=== PATIENT | male | born 1960 | race African-American/Black ===

== ENCOUNTER 2017-02-06 00:58 | Observation (INO) | payer BC ==
[2017-02-06] MEDS ORDERED: ASPIRIN 81 MG TABLET, CHEWABLE PO ONE (02:26)
[2017-02-06] MEDS ORDERED: FAMOTIDINE 20 MG TABLET PO ONE (02:26)
--- NOTE | 2017-02-06 02:28 | ER Document Report ---
ED Cardiac - General Chief Complaint: Chest Pain Stated Complaint: CHEST PAIN Time Seen by Provider: 02/06/17 02:18 Notes: Patient is a 57-year-old male who comes emergency department for chief complaint of chest pain, he states that he feels it in the middle of his chest, down towards the top of his abdomen and also towards the back. He denies nausea or vomiting, denies shortness of breath. He does report some belching earlier. Symptoms started in the afternoon. He states he still feels it while sitting on the bed. He drinks alcohol daily, has a past medical history of hypertension, is supposed to be on a combination blood pressure medication but he ran out. He does not know the name of this medication. Denies smoking. He sees Dr. Peguero. TRAVEL OUTSIDE OF THE [place] IN LAST 30 DAYS: No - Related Data Allergies/Adverse Reactions: No Known Allergies Allergy (Verified 06/26/14 06:43) Past Medical History - General Information source: Patient - Social History Smoking Status: Never Smoker Frequency of alcohol use: Heavy Drug Abuse: Cocaine Lives with: Family Family History: Reviewed & Not Pertinent Patient has suicidal ideation: No Patient has homicidal ideation: No - Past Medical History Cardiac Medical History: Reports: Hx Hypertension Renal/ Medical History: Denies: Hx Peritoneal Dialysis - Immunizations Hx Diphtheria, Pertussis, Tetanus Vaccination: Yes Review of Systems - Review of Systems Constitutional: No symptoms reported EENT: No symptoms reported Cardiovascular: See HPI Respiratory: No symptoms reported Gastrointestinal: See HPI Genitourinary: No symptoms reported Male Genitourinary: No symptoms reported Musculoskeletal: No symptoms reported Skin: No symptoms reported Hematologic/Lymphatic: No symptoms reported Neurological/Psychological: No symptoms reported Physical Exam - Vital signs Vitals: Temp Pulse Resp BP Pulse Ox 97.5 F 66 18 197/100 H 99 02/06/17 01:03 02/06/17 01:03 02/06/17 01:03 02/06/17 01:03 02/06/17 01:03 Interpretation: Normal - General General appearance: Anxious In distress: Mild - patient appears mildy uncomfortable but not in severe distress - HEENT Head: Normocephalic, Atraumatic Eyes: Normal Conjunctiva: Normal Extraocular movements intact: Yes Eyelashes: Normal Pupils: PERRL Mouth/Lips: Normal Mucous membranes: Normal Pharynx: Normal Neck: Normal - Respiratory Respiratory status: No respiratory distress Chest status: Nontender Breath sounds: Normal Chest palpation: Normal - Cardiovascular Rhythm: Regular. No: Tachycardia Heart sounds: Normal auscultation, S1 appreciated, S2 appreciated Murmur: No - Abdominal Inspection: Normal Distension: No distension Bowel sounds: Normal Tenderness: Nontender. No: Tender, Guarding Organomegaly: No organomegaly - Back Back: Normal, Nontender. No: Tender, CVA tenderness - Extremities General upper extremity: Normal inspection, Nontender, Normal color, Normal ROM , Normal temperature General lower extremity: Normal inspection, Nontender, Normal color, Normal ROM , Normal temperature, Normal weight bearing. No: John's sign - Neurological Neuro grossly intact: Yes Cognition: Normal Orientation: AAOx4 Maxim Coma Scale Eye Opening: Spontaneous [place] Coma Scale Verbal: Oriented [place] Coma Scale Motor: Obeys Commands Maxim Coma Scale Total: 15 Speech: Normal Motor strength normal: LUE, RUE, LLE, RLE Sensory: Normal - Psychological Associated symptoms: Normal affect, Normal mood - Skin Skin Temperature: Warm Skin Moisture: Dry Skin Color: Normal Course - Re-evaluation Re-evalutation: Patient's blood pressure and initial description of his chest pain concerning for acute coronary syndrome or aortic dissection. Lungs clear, soft belly, patient is very hypertensive but he is not tachycardic. Given his home medications initially. Given pepcid with ASA. EKG shows sinus rhythm with no T-wave inversions or ST segment changes in consecutive leads. Chest x-ray unremarkable. CTA was performed, it does show aortic aneurysm but does not show any evidence of dissection or acute intrathoracic abnormality. Aneurism is not surgical size. Patient reviewed with Dr. Wade. Patient was given ativan. Recommends admission. Patient chest pain free. Well appearing. Blood pressure significantly improved. Initial troponin indeterminate. Unable to admit to hospitalist as he is busy with other admissions. 02/06/17 07:[address] Espinoza, patient will be admitted to telemetry observation. - Vital Signs Vital signs: Temp Pulse Resp BP Pulse Ox 97.5 F 66 16 121/87 H 98 02/06/17 01:03 02/06/17 01:03 02/06/17 07:01 02/06/17 07:01 02/06/17 07:01 - Laboratory Result Diagrams: 02/06/17 01:52 02/06/17 01:52 Laboratory results interpreted by me: 02/06/17 02/06/17 01:52 01:52 RBC 3.88 L Hgb 11.5 L Hct 34.1 L RDW 16.9 H Total Bilirubin 2.1 H Direct Bilirubin 0.5 H Total Protein 8.7 H Discharge - Discharge Clinical Impression: Cocaine abuse, Uncontrolled hypertension Chest pain Qualifiers: Chest pain type: unspecified Qualified Code(s): R07.9 - Chest pain, unspecified Condition: Stable Disposition: ADMITTED OBSERVATION Admitting Provider: Hospitalist Unit Admitted: Telemetry
[2017-02-06 02:35] LABS: ABSOLUTE BASOPHILS # (AUTO) 0.1 10^3/uL (0.0-0.2); ABSOLUTE EOSINOPHILS # (AUTO) 0.2 10^3/uL (0.0-0.6); ABSOLUTE LYMPHOCYTES (AUTO) 2.8 10^3/uL (0.5-4.7); ABSOLUTE MONOCYTES (AUTO) 0.5 10^3/uL (0.1-1.4); ABSOLUTE NEUT (AUTO) 2.8 10^3/uL (1.7-8.2); BASOPHILS % (AUTO) 1.3 % (0-2); EOSINOPHILS % (AUTO) 3.7 % (0-6); HEMATOCRIT 34.1 % (37.9-51.0); HEMOGLOBIN 11.5 g/dL (13.5-17.0); HGB HCT DIFFERENCE 0.4; LYMPHOCYTES % (AUTO) 44.2 % (13-45); MEAN CORPUSCULAR HEMOGLOBIN 29.6 pg (27.0-33.4); MEAN CORPUSCULAR HGB CONC 33.7 g/dL (32.0-36.0); MEAN CORPUSCULAR VOLUME 88 fl (80-97); MONOCYTES % (AUTO) 7.6 % (3-13); RED BLOOD COUNT 3.88 10^6/uL (4.35-5.55); RED CELL DISTRIBUTION WIDTH 16.9 % (11.5-14.0); SEGMENTED NEUTROPHILS % (AUTO) 43.2 % (42-78); WHITE BLOOD COUNT 6.4 10^3/uL (4.0-10.5)
[2017-02-06 02:40] LABS: ALANINE AMINOTRANSFERASE 26 U/L (21-72); ALKALINE PHOSPHATASE 70 U/L (38-126); ANION GAP 15 (5-19); ASPARTATE AMINO TRANSFERASE 25 U/L (17-59); BILIRUBIN,DIRECT 0.5 mg/dL (0.0-0.4); BILIRUBIN,TOTAL 2.1 mg/dL (0.2-1.3); BLOOD UREA NITROGEN 13 mg/dL (7-20); CALCIUM 10.1 mg/dL (8.4-10.2); CARBON DIOXIDE 23 mmol/L (22-30); CHLORIDE 105 mmol/L (98-107); CREATINE KINASE 141 U/L (55-170); CREATININE RESULT 1.14 mg/dL (0.52-1.25); GLUCOSE 92 mg/dL (75-110); LIPASE 53.7 U/L (23-300); POTASSIUM 3.8 mmol/L (3.6-5.0); SODIUM 143.1 mmol/L (137-145); TOTAL PROTEIN 8.7 g/dL (6.3-8.2)
[2017-02-06 02:53] LABS: CREATINE KINASE MB 1.54 ng/mL (<4.55); TROPONIN I 0.015 ng/mL
[2017-02-06] MEDS ORDERED: HYDROCHLOROTHIAZIDE 12.5 MG CAPSULE PO ONE (03:07)
[2017-02-06] MEDS ORDERED: LISINOPRIL 10 MG TABLET PO ONE (03:07)
--- NOTE | 2017-02-06 03:47 | RADIOLOGY REPORT (SQ) ---
EXAM DESCRIPTION: CHEST SINGLE VIEW COMPLETED DATE/TIME: 02/06/2017 3:37 am REASON FOR STUDY: chest pain COMPARISON: 06.26.14 EXAM PARAMETERS: NUMBER OF VIEWS: One view. TECHNIQUE: Single frontal radiographic view of the chest acquired. RADIATION DOSE: NA LIMITATIONS: None. FINDINGS: LUNGS AND PLEURA: No opacities, masses or pneumothorax. No pleural effusion. MEDIASTINUM AND HILAR STRUCTURES: No masses. Contour normal. HEART AND VASCULAR STRUCTURES: Heart normal in size. Normal vasculature. BONES: No acute findings. HARDWARE: None in the chest. OTHER: No other significant finding. IMPRESSION: NO ACUTE RADIOGRAPHIC FINDING IN THE CHEST. TECHNICAL DOCUMENTATION: JOB ID: [id number]
[2017-02-06 03:48] LABS: URINE BARBITURATES SCREEN NEGATIVE; URINE METHADONE SCREEN NEGATIVE; URINE OPIATES LOW NEGATIVE; URINE PHENCYCLIDINE SCREEN NEGATIVE
--- NOTE | 2017-02-06 04:53 | RADIOLOGY REPORT (SQ) ---
EXAM DESCRIPTION: CTA CHEST COMPLETED DATE/TIME: 02/06/2017 4:32 am REASON FOR STUDY: hypertension, cocaine, chest pain COMPARISON: CR, same day. TECHNIQUE: CT scan of the chest performed using helical scanning technique with dynamic intravenous contrast injection. Images reviewed with lung, soft tissue and bone windows. Reconstructed coronal and sagittal MPR images reviewed. Additional 3 dimensional post-processing performed to develop Maximal Intensity Projection images (PA P). All images stored on PACS. All CT scanners at this facility use dose modulation, iterative reconstruction, and/or weight based d osing when appropriate to reduce radiation dose to as low as reasonably achievable (ALARA). [facility]: Dose Right [facility]: CareDose [facility]: Dose Right [facility]: Teradose 4D [facility]: CodaMation CONTRAST TYPE AND DOSE: contrast/concentration: Isovue 370.00 mg/ml; Total Contrast Delivered: 100.0 ml; Total Saline Delivered: 65.1 ml RENAL FUNCTION: Creatinine 1.1 RADIATION DOSE: 692 LIMITATIONS: None. FINDINGS: LUNGS AND PLEURA: No masses, infiltrates, pneumothorax. No pleural effusions, calcificati ons. AORTA AND GREAT VESSELS: 3.8 cm diameter enlargement of the ascending thoracic aorta. HEART: No pericardial effusion. PULMONARY ARTERIES: No emboli visualized in the main pulmonary arteries or the segmental branches. HILAR AND MEDIASTINAL STRUCTURES: No identified masses or abnormal nodes. Moderate fluid dilation of the esophagus with mild -moderate diffuse esophageal mural thickening. HARDWARE: None in the chest. UPPER ABDOMEN: No significant findings. Limited exam. THYROID AND OTHER SOFT TISSUES: No masses. No adenopathy. BONES: No acute or significant finding. 3D MIPS: Confirm above findings. OTHER: No other significant finding. IMPRESSION: 1. Moderate diffuse esophageal dilation may indicate esophagitis; other infectious, inf lammatory, and neoplastic processes are in the differential diagnosis. 2. 3.8 cm diameter ascending thoracic aortic aneurysm. 3. Otherwise, no acute cardiopulmonary findings. No evidence of pulmona ry emboli. TECHNICAL DOCUMENTATION: JOB ID: [id number] Quality ID # [id number]: Final reports with documentation of one or more dose reduction techniques (e.g., Au tomated exposure control, adjustment of the mA and/or kV according to patient size, use of iterative reconstruction technique) 2010 [employer]- All Rights Reserved
--- NOTE | 2017-02-06 04:57 | RADIOLOGY REPORT (SQ) ---
EXAM DESCRIPTION: CTA ABDOMEN COMPLETED DATE/TIME: 02/06/2017 4:32 am REASON FOR STUDY: hypertension, cocaine, chest pain COMPARISON: None. TECHNIQUE: CT scan of the abdominal aorta extending to the iliac bifurcation performed with and with out intravenous contrast using helical scanning technique with dynamic intravenous contrast injection . Images reviewed with lung, soft tissue, and bone windows. Reconstructed coronal and sagittal MPR im ages reviewed. All images stored on PACS. Advanced 3D imaging as volume rendering, MIPS, SSD performed? yes All CT scanners at this facility use dose modulation, iterative reconstruction, and/or weight based d osing when appropriate to reduce radiation dose to as low as reasonably achievable (ALARA). [facility]: Dose Right [facility]: CareDose [facility]: Dose Right [facility]: Teradose 4D [facility]: Mixgar CONTRAST TYPE AND DOSE: 100 mL Isovue 370- low osmolar. RENAL FUNCTION: Creatinine 1.1 RADIATION DOSE: 692 LIMITATIONS: None. FINDINGS: NON-CONTRASTED IMAGING: No significant renal or bladder calcifications. No other significa nt organ calcifications. POST-CONTRAST IMAGING: Abdominal AORTA AND VESSELS: No aneurysm. No dissection. Renal arteries, SMA, celiac without stenosis . Abnormal CT of the chest reported separately. LUNG BASES: Abnormal CT of the chest reported separately. LIVER: Normal size. No masses or dilated ducts. SPLEEN: Normal size. No focal lesions. PANCREAS: No masses. No significant calcifications. No adjacent inflammation or peripancreatic fluid collections. Pancreatic duct not dilated. GALLBLADDER: No identified stones by CT criteria. No inflammatory changes to suggest cholecystitis. ADRENAL GLANDS: No significant masses or asymmetry. RIGHT KIDNEY AND URETER: No mass, calculi or urinary tract obstruction. LEFT KIDNEY AND URETER: No mass, calculi or urinary tract obstruction. RETROPERITONEUM: No retroperitoneal adenopathy, hemorrhage or masses. BOWEL AND PERITONEAL CAVITY: No masses or inflammatory changes. No free fluid or peritoneal masses. APPENDIX: Not visualized. ABDOMINAL WALL: No masses. No hernias. BONY STRUCTURES: No significant or acute findings. Mild disc desiccation. 3-D IMAGING: Confirms the above findings. OTHER: No other significant finding. IMPRESSION: NO ABDOMINAL AORTIC ANEURYSM, DISSECTION OR SIGNIFICANT STENOSIS. NO SIGNIFICANT FINDING S IN THE ABDOMEN. Abnormal CT of the chest reported separately. TECHNICAL DOCUMENTATION: JOB ID: [id number] Quality ID # 436: Final reports with documentation of one or more dose reduction techniques (e.g., Au tomated exposure control, adjustment of the mA and/or kV according to patient size, use of iterative reconstruction technique) 2010 [employer]- All Rights Reserved
[2017-02-06] MEDS ORDERED: LORAZEPAM INJ 2 MG/1 ML VIAL IV ONE (04:58)
[2017-02-06] MEDS ORDERED: ACETAMINOPHEN 325 MG TABLET PO PRN (09:51)
[2017-02-06] MEDS ORDERED: ONDANSETRON HCL INJ/PF 4 MG/2 ML SDV IV PRN (09:51)
[2017-02-06] MEDS ORDERED: IPRATROPIUM/ALBUTEROL 0.5-2.5 MG/3 ML AMPUL NEB PRN (09:51)
[2017-02-06] MEDS ORDERED: MAGNESIUM HYDROXIDE SUSP 30 ML UDCUP PO PRN (09:51)
[2017-02-06] MEDS ORDERED: OXYCODONE-ACETAMINOPHEN 5-325 MG TABLET PO PRN (09:51)
--- NOTE | 2017-02-06 09:51 | PDOC H&P ---
History of Present Illness Admission Date/PCP: 02/06/17 07:55 dr henry Patient complains of: chest pain History of Present Illness: KIERA SOTO is a 57 year old male presents from home with sudden onset substernal sharp, stabbing, constant chest pain radiating to his back between his shoulder blades about 2 hrs after eating dinner that awakened him from sleep. there were no other asct'd symptoms of arm/jaw pain, diaphoresis, palpitations, n/v, hematemesis, cough with fever/chills, ZIMMERMAN, dizziness, syncope/presyncope, numbness/tingling or dyspnea. he's never had anything like this before, never required cardiac evaluation in the past. he c/ o constant chronic heartburn treated with food avoidance of acidic foods and OTC gasEx at least twice a month, no PPI. he has never undergone EGD and no hx of esophageal or gastric evaluation or abnormalities. eval in ED shows negative Mary x2, ecg neg for acute ischemic changes but cta chest has a couple of abnl's including TAA 3.8cm and no mention of dissection, and diffuse esophageal thickening and dilatation along its length with large fluid collection but no masses. we were asked to admit for further eval and management. he admits to recent cocaine snorting on Saturday and also ran out of his HTN meds same day, takes lotrel 20/12.5 daily. he admits to 6 beers daily, more on the weekends and sharing a bottle of gin with friends that lasts about 2 days between them. He admits to legal problems related to his ETOH use in the past and has been in AA but never had withdrawal or seizures as a result, never admitted to hospital for ETOH before. He has a strong family hx of early AMI with Mom in her 60's and Dad in his 50's but FMH of Marfan's, connective tissue d/o's, aneurysms or CVA's. He denies tob, IVDA and THC. Past Medical History Cardiac Medical History: Reports: Hypertension Denies: Myocardial Infarction, Hyperlipidema Pulmonary Medical History: Reports: None Neurological Medical History: Reports: None Endocrine Medical History: Reports: None GI Medical History: Reports: None Psychiatric Medical History: Reports: Alcohol Dependency, Substance Abuse Hematology: Reports: None Infectious Medical History: Reports: None Past Surgical History Past Surgical History: Reports: Appendectomy Social History Information Source: Patient Lives with: Family Smoking Status: Never Smoker Frequency of Alcohol Use: Heavy Hx Recreational Drug Use: Yes Drugs: Cocaine Hx Prescription Drug Abuse: No - Advance Directive Resuscitation Status: Full Code Family History Family History: CAD. denies: CVA, Malignancy Parental Family History Reviewed: Yes Children Family History Reviewed: Yes Sibling(s) Family History Reviewed.: Yes Medication/Allergy Home Medications: Guaifenesin/Codeine Phosphate [Codeine-Guaifen 10-100 mg/5 ml] 5 ml PO Q6 #120 liquid 06/26/14 Allergies/Adverse Reactions: No Known Allergies Allergy (Verified 06/26/14 06:43) Review of Systems All systems: reviewed and no additional remarkable complaints except as stated - all systems reviewed, see HPI, remaining systems negative Physical Exam Vital Signs: Temp Pulse Resp BP Pulse Ox 97.5 F 66 16 121/87 H 98 02/06/17 01:03 02/06/17 01:03 02/06/17 07:01 02/06/17 07:01 02/06/17 07:01 General appearance: PRESENT: well-developed, well-nourished. ABSENT: no acute distress Head exam: PRESENT: atraumatic, normocephalic Eye exam: PRESENT: EOMI. ABSENT: conjunctival injection, scleral icterus Mouth exam: PRESENT: moist, neck supple Teeth exam: PRESENT: poor dentation Neck exam: PRESENT: carotid bruit - left. ABSENT: lymphadenopathy, tenderness, thyromegaly, tracheal deviation Respiratory exam: PRESENT: clear to auscultation [place]. ABSENT: accessory muscle use Cardiovascular exam: PRESENT: RRR. ABSENT: diastolic murmur, rubs, systolic murmur Pulses: PRESENT: normal radial pulses. ABSENT: normal dorsalis pedis pul - Rt DP/PT diminished compared to the left; normal and symmetric popliteal pulses Vascular exam: PRESENT: normal capillary refill GI/Abdominal exam: PRESENT: normal bowel sounds, soft. ABSENT: guarding, organolmegaly, tenderness, other - no bruit Rectal exam: PRESENT: deferred Musculoskeletal exam: PRESENT: ambulatory, full ROM, normal inspection. ABSENT : tenderness Neurological exam: PRESENT: alert, awake, oriented to person, oriented to place , oriented to time, oriented to situation, normal gait Psychiatric exam: PRESENT: appropriate affect, normal mood Skin exam: PRESENT: dry, warm. ABSENT: rash Results Laboratory Results: 02/06/17 01:52 02/06/17 01:52 MCV 88 fl (80-97) 02/06/17 01:52 MCH 29.6 pg (27.0-33.4) 02/06/17 01:52 MCHC 33.7 g/dL (32.0-36.0) 02/06/17 01:52 RDW 16.9 % (11.5-14.0) H 02/06/17 01:52 Seg Neutrophils % 43.2 % (42-78) 02/06/17 01:52 Lymphocytes % 44.2 % (13-45) 02/06/17 01:52 Monocytes % 7.6 % (3-13) 02/06/17 01:52 Eosinophils % 3.7 % (0-6) 02/06/17 01:52 Basophils % 1.3 % (0-2) 02/06/17 01:52 Absolute Neutrophils 2.8 10^3/uL (1.7-8.2) 02/06/17 01:52 Absolute Lymphocytes 2.8 10^3/uL (0.5-4.7) 02/06/17 01:52 Absolute Monocytes 0.5 10^3/uL (0.1-1.4) 02/06/17 01:52 Absolute Eosinophils 0.2 10^3/uL (0.0-0.6) 02/06/17 01:52 Absolute Basophils 0.1 10^3/uL (0.0-0.2) 02/06/17 01:52 Chloride 105 mmol/L (98-107) 02/06/17 01:52 Carbon Dioxide 23 mmol/L (22-30) 02/06/17 01:52 Anion Gap 15 (5-19) 02/06/17 01:52 Est GFR ( Amer) > 60 (>60) 02/06/17 01:52 Est GFR (Non-Af Amer) > 60 (>60) 02/06/17 01:52 Glucose 92 mg/dL (75-110) 02/06/17 01:52 Calcium 10.1 mg/dL (8.4-10.2) 02/06/17 01:52 Total Bilirubin 2.1 mg/dL (0.2-1.3) H 02/06/17 01:52 AST 25 U/L (17-59) 02/06/17 01:52 ALT 26 U/L (21-72) 02/06/17 01:52 Alkaline Phosphatase 70 U/L (38-126) 02/06/17 01:52 Total Protein 8.7 g/dL (6.3-8.2) H 02/06/17 01:52 Albumin 5.0 g/dL (3.5-5.0) 02/06/17 01:52 Lipase 53.7 U/L (23-300) 02/06/17 01:52 02/06/17 02/06/17 02/06/17 01:52 01:52 06:30 Creatine Kinase 141 CK-MB (CK-2) 1.54 Troponin I 0.015 < 0.012 EKG Comments: ekg shows NSR without acute ischemic changes Impressions: Chest X-Ray 02/06/17 02:26 IMPRESSION: NO ACUTE RADIOGRAPHIC FINDING IN THE CHEST. Chest/Abdomen CTA 02/06/17 03:52 IMPRESSION: NO ABDOMINAL AORTIC ANEURYSM, DISSECTION OR SIGNIFICANT STENOSIS. NO SIGNIFICANT FINDINGS IN THE ABDOMEN. Abnormal CT of the chest reported separately. Status: Image reviewed by me - I am not sure if I see an abnl along the wall of the ascending aorta just distal to the aneurysm, no definite extravasation of contrast or obvious dissection. i discussed with dr skinner and she feels this is artifact; she went on to emphasize the abnormality of the esophagus noting tightening of the GE junction worrisome for mass or external compression with diffusely markedly abnl appearing esophageal wall. Assessment & Plan - Diagnosis (1) Chest pain Qualifiers: Chest pain type: unspecified Qualified Code(s): R07.9 - Chest pain, unspecified Is this a current diagnosis for this admission?: YesPlan: unclear etiology, will admit to telemetry and continue to cycle his enzymes. My suspicion is quite high for GI source given his ETOH use and ct findings. see below hold ASA until GI eval complete unless he rules in for cardiac source (2) Abnormal CT scan, esophagus Is this a current diagnosis for this admission?: YesPlan: empiric PPI and consult GI for endoscopy once he r/o's for cardiac source with neg enzymes and ecgs and echo (3) ETOH abuse Is this a current diagnosis for this admission?: YesPlan: empiric thiamine, cessation counseling performed for about 10mins at the bedside , monitor for withdrawal and cover with ativan (4) Anemia, normocytic normochromic Is this a current diagnosis for this admission?: YesPlan: likely due to chronic ETOH use, ck stool guaiacs and f/u on GI consult (5) Cocaine abuse Is this a current diagnosis for this admission?: YesPlan: counseled regarding cessation, states he will walk away from it and pleaded with me not to tell his . (6) Uncontrolled hypertension Is this a current diagnosis for this admission?: YesPlan: goal is <125/85 given the aneurysm; ck lipids (7) Thoracoabdominal aortic aneurysm (TAAA) without rupture Is this a current diagnosis for this admission?: YesPlan: mild, chronicity unclear and no clear connection to his chest pain. will ck echo for aortic valve abnormality, root measurement, etc. will need follow up as outpatient for continued monitoring. (8) Carotid bruit Qualifiers: Laterality: left Qualified Code(s): R09.89 - Other specified symptoms and signs involving the circulatory and respiratory systems Is this a current diagnosis for this admission?: YesPlan: ck dopplers for aneurysm, dissection, stenosis. - Time Time Spent: Greater than 70 Minutes Medications reviewed and adjusted accordingly: Yes Anticipated discharge: Home Within: within 48 hours
[2017-02-06] MEDS ORDERED: MORPHINE SULFATE 10 MG/ML INJ IV PRN (09:59)
[2017-02-06 10:41] LABS: PROTHROMBIN TIME 14.3 SEC (11.4-15.4)
[2017-02-06 10:42] LABS: PARTIAL THROMBOPLASTIN TIME 30.3 SEC (23.5-35.8)
--- NOTE | 2017-02-06 10:46 | EKG REPORT ---
SEVERITY:- ABNORMAL ECG - SINUS RHYTHM CONSIDER ANTEROSEPTAL INFARCT : Confirmed by: Wilfrido Hernandez 06-Feb-2017 10:45:48
[2017-02-06 10:51] LABS: MAGNESIUM 2.3 mg/dL (1.6-2.3); PHOSPHORUS 3.7 mg/dL (2.5-4.5)
[2017-02-06] MEDS: FERROUS SULFATE 325 MG TABLET PO SCH (11:32)
[2017-02-06] MEDS: THIAMINE HCL 100 MG TABLET PO SCH (11:33)
[2017-02-06] MEDS: DOCUSATE SODIUM 100 MG CAPSULE PO SCH (11:33)
[2017-02-06] MEDS: PANTOPRAZOLE SODIUM 40 MG VIAL IV SCH ×2 (11:33→22:07)
[2017-02-06] MEDS: ENOXAPARIN SODIUM INJ 40 MG/0.4 ML DISP.SYRIN SUBCUT SCH (11:34)
[2017-02-06 11:49] LABS: APPEARANCE,URINE CLEAR; BILIRUBIN,URINE NEGATIVE (NEGATIVE); GLUCOSE, URINE NEGATIVE (NEGATIVE); KETONES,URINE NEGATIVE (NEGATIVE); LEUKOCYTE ESTERASE,URINE NEGATIVE (NEGATIVE); NITRITE,URINE NEGATIVE (NEGATIVE); PROTEIN,URINE NEGATIVE (NEGATIVE); UROBILINOGEN,URINE NEGATIVE mg/dL (<2.0)
--- NOTE | 2017-02-06 13:39 | RADIOLOGY REPORT (SQ) ---
EXAM DESCRIPTION: CAROTID DOPPLER COMPLETED DATE/TIME: 02/06/2017 1:20 pm REASON FOR STUDY: left bruit COMPARISON: None. TECHNIQUE: Grayscale ultrasound, Doppler velocity and spectra, and color Doppler images acquired of the extra-cranial carotid and vertebral arteries. Images stored on PACS. LIMITATIONS: None. FINDINGS: RIGHT CAROTID CCA Velocities: Within normal limits. ICA Velocities Peak systolic 0.89 m/s. End diastolic 0.22 m/s. Proximal ICA/CCA peak systolic ratio 0.9. Spectra normal. Minimal calcific and noncalcific plaque at the right carotid bifurcation without yunier w significant stenosis. LEFT CAROTID CCA Velocities: Within normal limits. ICA Velocities Peak systolic 0.51 m/s. End diastolic 0.23 m/s. Proximal ICA/CCA peak systolic ratio 0.9. Spectra normal. Minimal calcific and noncalcific plaque at the left carotid bifurcation without flow significant stenosis. VERTEBRAL ARTERIES: Antegrade flow. Normal waveforms. SUBCLAVIAN ARTERIES: Not evaluated OTHER: No other significant finding. IMPRESSION: NO HEMODYNAMICALLY SIGNIFICANT STENOSIS. COMMENT: Quality ID #[id number]: Velocity criteria are extrapolated from the diameter data as defined by t he Society of Radiologists in Ultrasound Consensus Conference. Radiology 2003: 229; 340-346. TECHNICAL DOCUMENTATION: JOB ID: [id number] [employer]- All Rights Reserved
--- NOTE | 2017-02-06 18:00 | XCELERA REPORT ---
[address] [address] Transthoracic Echocardiogram Report Name: KIERA SOTO Age: 57 yrs Gender: Male : 1960 Patient Status: Inpatient Patient Location: \S\ED06\S\A Study Date: 02/06/2017 11:47 AM Height: 69 in Weight: 154 lb BSA: 1.8 m2 Procedure: A two-dimensional transthoracic echocardiogram with color flow and Doppler was performed. The study was technically difficult with many images being suboptimal in quality. Reason For Study: AORTIC ANEURYSM History: AORTIC ANEURYSM. Ordering Physician: VIVIEN GOEL Performed By: Chrissy Quezada Interpretation Summary The left ventricle is normal in size. There is normal left ventricular wall thickness. LV EF is 65% Doppler measurements suggest impaired left ventricular relaxation, which is associated with grade I/IV or mild diastolic dysfunction The left ventricular wall motion is normal. There is no thrombus. The left atrium is mildly dilated. The interatrial septum is intact with no evidence for an atrial septal defect. There is no evidence of mitral valve prolapse. There is no mitral valve stenosis. There is a trace amount of mitral regurgitation There is no aortic valve stenosis There is no LVOT obstruction. No aortic regurgitation is present. There is no tricuspid stenosis. There is a trace amount of tricuspid regurgitation Right ventricular systolic pressure is normal. RVSP is 24 mm of Hg , with RA mean of 5. The aortic root is not well visualized but is probably normal size. There is no pericardial effusion. MMode/2D Measurements \T\ Calculations RVDd: 2.4 cm LVIDd: 4.6 cm FS: 35.0 % Ao root diam: 3.2 cm IVSd: 0.95 cm LVIDs: 3.0 cm EDV(Teich): 94.9 ml LVPWd: 0.99 cmESV(Teich): 33.8 ml Ao root area: 8.3 cm2 EF(Teich): 64.4 % LA dimension: 4.3 cm LVOT diam: 2.4 cm LVOT area: 4.5 cm2 Doppler Measurements \T\ Calculations MV E max cecile: MV P1/2t max cecile: Ao V2 max: LV V1 max P.5 cm/sec 81.4 cm/sec 160.2 cm/sec 5.3 mmHg MV A max cecile: MV P1/2t: 52.5 msec Ao max PG: LV V1 max: 93.8 cm/sec MVA(P1/2t): 4.2 cm2 10.3 mmHg 115.3 cm/sec MV E/A: 0.86 MV dec slope: ROBYN(V,D): 3.3 cm2 454.2 cm/sec2 PA V2 max: TR max cecile: 96.3 cm/sec 218.0 cm/sec PA max PG: TR max P.0 mmHg 3.7 mmHg Left Ventricle The left ventricle is normal in size. There is normal left ventricular wall thickness. LV EF is 65%. Left ventricular systolic function is normal. Doppler measurements suggest impaired left ventricular relaxation, which is associated with grade I/IV or mild diastolic dysfunction. The left ventricular wall motion is normal. There is no thrombus. There is no ventricular septal defect visualized. Right Ventricle The right ventricle is normal in size and function. Atria The right atrium is normal. The left atrium is mildly dilated. The interatrial septum is intact with no evidence for an atrial septal defect. Mitral Valve There is no evidence of mitral valve prolapse. There is no vegetation seen on the mitral valve. There is no mitral valve stenosis. There is a trace amount of mitral regurgitation. Aortic Valve There is no aortic valvular vegetation. There is no aortic valve stenosis. There is no LVOT obstruction. No aortic regurgitation is present. Tricuspid Valve There is no tricuspid stenosis. There is a trace amount of tricuspid regurgitation. Right ventricular systolic pressure is normal. RVSP is 24 mm of Hg , with RA mean of 5. Pulmonic Valve There is no pulmonic valvular stenosis. There is no pulmonic valvular regurgitation. Great Vessels The aortic root is not well visualized but is probably normal size. Effusions There is no pericardial effusion. : VIVIEN GOEL > Breonna Ordaz
--- NOTE | 2017-02-06 18:05 | PDOC CONSULTATION ---
Consultation Consult Date: 02/06/17 Attending physician:: JAN FRANKLIN Consult reason:: abnormal CT scan of the distal esophagus. Non cardiac chest pain History of Present Illness Admission Date/PCP: 02/06/17 09:51 History of Present Illness: patient is admitted by the Hospitalist service had chest pain had use of cocaine and did not have CT had CT scan of the chest done and noted to have retained fluid along with abnormal thickening of the distal esophagus patient states not having dysphagia and denies any significant weight loss does state has GERD will need EGD to clarification of current problem spoke with the patient, he is willing to proceed will need propofol sedation Past Medical History Cardiac Medical History: Reports: Hypertension Denies: Myocardial Infarction, Hyperlipidema Pulmonary Medical History: Reports: None Neurological Medical History: Reports: None Endocrine Medical History: Reports: None GI Medical History: Reports: None Psychiatric Medical History: Reports: Alcohol Dependency, Substance Abuse Denies: Depression Hematology: Reports: None Infectious Medical History: Reports: None Past Surgical History Past Surgical History: Reports: Appendectomy Social History Lives with: Family Smoking Status: Former Smoker Frequency of Alcohol Use: Heavy Hx Recreational Drug Use: Yes Drugs: Cocaine Hx Prescription Drug Abuse: No - Advance Directive Resuscitation Status: Full Code Family History Family History: CAD. denies: CVA, Malignancy Parental Family History Reviewed: Yes Children Family History Reviewed: Unknown Sibling(s) Family History Reviewed.: Unknown Medication/Allergy Home Medications: Ferrous Sulfate [Feosol 325 mg Tablet] 325 mg PO DAILY 02/06/17 Lisinopril/Hydrochlorothiazide [Lisinopril-Hctz 20-12.5 mg Tab] 1 tab PO DAILY 02/06/17 Allergies/Adverse Reactions: No Known Allergies Allergy (Verified 06/26/14 06:43) Review of Systems Constitutional: ABSENT: fever(s), headache(s), night sweats, weakness Eyes: ABSENT: visual disturbances Ears: ABSENT: hearing changes Nose, Mouth, and Throat: ABSENT: mouth pain, sore throat Cardiovascular: PRESENT: chest pain. ABSENT: edema, orthropnea, palpitations Respiratory: ABSENT: dyspnea, hemoptysis Gastrointestinal: PRESENT: heartburn. ABSENT: diarrhea, hematemesis, hematochezia Genitourinary: ABSENT: dysuria, hematuria Musculoskeletal: ABSENT: deformity, joint swelling Integumentary: ABSENT: lesions, pruritus Neurological: ABSENT: syncope, tingling, tremor(s), vertigo Endocrine: ABSENT: polydipsia, polyphagia, polyuria Hematologic/Lymphatic: ABSENT: easy bruising Physical Exam Vital Signs: Temp Pulse Resp BP Pulse Ox 97.7 F 67 16 122/82 97 02/06/17 15:24 02/06/17 16:40 02/06/17 16:40 02/06/17 15:24 02/06/17 16:40 Intake & Output 02/05/17 02/06/17 02/07/17 06:59 06:59 06:59 Weight 69.853 kg General appearance: PRESENT: no acute distress, well-developed, well-nourished Head exam: PRESENT: atraumatic, normocephalic Eye exam: PRESENT: conjunctiva pink, EOMI, PERRLA. ABSENT: periorbital swelling , scleral icterus Mouth exam: PRESENT: moist Throat exam: ABSENT: tonsillar exudate, tonsillogmegaly Neck exam: ABSENT: meningismus, tenderness, thyromegaly Respiratory exam: PRESENT: symmetrical, unlabored. ABSENT: rales, tachypnea, wheezes Cardiovascular exam: PRESENT: RRR, +S1, +S2 GI/Abdominal exam: PRESENT: soft. ABSENT: ascites, Donahue's sign, rebound, rigid, tenderness Extremities exam: ABSENT: joint swelling Musculoskeletal exam: PRESENT: full ROM Neurological exam: PRESENT: oriented to time, oriented to situation, reflexes normal Psychiatric exam: PRESENT: appropriate affect Skin exam: PRESENT: normal color. ABSENT: mottled, pallor, petechiae, urticaria , vesicles Results Laboratory Results: 02/06/17 02/06/17 10:25 11:26 Phosphorus 3.7 Magnesium 2.3 Amylase 57 Urine Color STRAW Urine Appearance CLEAR Urine pH 6.0 Ur Specific [place] 1.030 Urine Protein NEGATIVE Urine Glucose (UA) NEGATIVE Urine Ketones NEGATIVE Urine Blood SMALL H Urine Nitrite NEGATIVE Ur Leukocyte Esterase NEGATIVE Urine WBC (Auto) 1 Urine RBC (Auto) 1 02/06/17 12:00 Troponin I < 0.012 Impressions: Chest X-Ray 02/06/17 02:26 IMPRESSION: NO ACUTE RADIOGRAPHIC FINDING IN THE CHEST. Chest/Abdomen CTA 02/06/17 03:52 IMPRESSION: NO ABDOMINAL AORTIC ANEURYSM, DISSECTION OR SIGNIFICANT STENOSIS. NO SIGNIFICANT FINDINGS IN THE ABDOMEN. Abnormal CT of the chest reported separately. Carotid Doppler Study 02/06/17 09:58 IMPRESSION: NO HEMODYNAMICALLY SIGNIFICANT STENOSIS. Assessment & Plan - Diagnosis (1) Abnormal CT scan, esophagus Is this a current diagnosis for this admission?: YesPlan: will need EGD rule out potential obstruction Risks, benefits and alternatives are discussed with the patient in detail will need Propofol sedation (2) Chest pain Qualifiers: Chest pain type: unspecified Qualified Code(s): R07.9 - Chest pain, unspecified Is this a current diagnosis for this admission?: YesPlan: could be due to GERD vs esophageal spasm start him on a PPI Risks, benefits and alternatives discussed with the patient - Time Time Spent: 50 to 70 Minutes
[2017-02-06] MEDS: METOPROLOL TARTRATE 25 MG TABLET PO SCH (22:00)
[2017-02-07 05:39] LABS: MEAN CORPUSCULAR HEMOGLOBIN 29.9 pg (27.0-33.4); MEAN CORPUSCULAR HGB CONC 33.4 g/dL (32.0-36.0); MEAN CORPUSCULAR VOLUME 90 fl (80-97); RED BLOOD COUNT 3.68 10^6/uL (4.35-5.55); RED CELL DISTRIBUTION WIDTH 16.8 % (11.5-14.0); WHITE BLOOD COUNT 5.5 10^3/uL (4.0-10.5)
[2017-02-07 05:40] LABS: ANION GAP 12 (5-19); BLOOD UREA NITROGEN 12 mg/dL (7-20); CALCIUM 9.9 mg/dL (8.4-10.2); CARBON DIOXIDE 26 mmol/L (22-30); CHLORIDE 104 mmol/L (98-107); CHOLESTEROL 218.19 mg/dL (0-200); Direct HDL 58 mg/dL (>40); GLUCOSE 92 mg/dL (75-110); POTASSIUM 4.3 mmol/L (3.6-5.0); SODIUM 142.2 mmol/L (137-145); TRIGLYCERIDES 71 mg/dL (<150)
[2017-02-07 05:50] LABS: DIRECT LDL 135 mg/dL (<100)
[2017-02-07] MEDS: ENOXAPARIN SODIUM INJ 40 MG/0.4 ML DISP.SYRIN SUBCUT SCH (11:16)
[2017-02-07] MEDS: METOPROLOL TARTRATE 25 MG TABLET PO SCH (11:17)
[2017-02-07] MEDS: PANTOPRAZOLE SODIUM 40 MG VIAL IV SCH (11:17)
[2017-02-07] MEDS: DOCUSATE SODIUM 100 MG CAPSULE PO SCH (11:18)
[2017-02-07] MEDS: FERROUS SULFATE 325 MG TABLET PO SCH (11:18)
[2017-02-07] MEDS: THIAMINE HCL 100 MG TABLET PO SCH (11:18)
[2017-02-07] MEDS ORDERED: FENTANYL CITRATE INJ/PF 100 MCG/2 ML AMPUL ONE (12:06)
[2017-02-07] MEDS ORDERED: MIDAZOLAM 2 MG/2 ML INJ ONE (12:07)
[2017-02-07] MEDS ORDERED: PROPOFOL INJ 200 MG/20 ML VIAL IV ONE (12:07)
[2017-02-07] MEDS ORDERED: FENTANYL CITRATE INJ/PF 100 MCG/2 ML AMPUL IV PRN (12:40)
[2017-02-07] MEDS ORDERED: DIPHENHYDRAMINE HCL 50 MG/ML VIAL IV PRN (12:40)
[2017-02-07] MEDS ORDERED: PROMETHAZINE HCL INJ 25 MG/1 ML VIAL IV PRN ×2 (12:40)
[2017-02-07] MEDS ORDERED: MAGNESIUM HYDROXIDE SUSP 30 ML UDCUP PO PRN (12:53)
[2017-02-07] MEDS ORDERED: ONDANSETRON HCL INJ/PF 4 MG/2 ML SDV IV PRN (12:53)
--- NOTE | 2017-02-07 13:07 | EKG REPORT ---
SEVERITY:- ABNORMAL ECG - SINUS RHYTHM CONSIDER ANTEROSEPTAL INFARCT : Confirmed by: Wilfrido Hernandez 07-Feb-2017 13:06:33
--- NOTE | 2017-02-07 13:27 | Operative Report ---
Operative Report DATE OF SURGERY: 02/07/17 Operative Report: The risks benefits and alternatives of the procedure explained to the patient in detail and informed consent is obtained. A GIF Olympus video scope was inserted into the patient's mouth and hypopharynx ,the esophagus is identified intubated and insufflated, the scope was then advanced through the esophagus stomach and duodenum ,retroflexion maneuver is done, the esophagus stomach and first and second portions of the duodenum examined PREOPERATIVE DIAGNOSIS: Noncardiac chest pain. Abnormal CT scan indicating some subtle thickening of the distal esophagus POSTOPERATIVE DIAGNOSIS: Dilated esophagus and the proximal two thirds. Possible achalasia versus corkscrew esophagus i.e. esophageal spasm. No thickening noted. No abnormal masses noted. Retained fluid noted. We will need manometry study. OPERATION: EGD with biopsy SURGEON: JAN FRANKLIN ANESTHESIA: LMAC TISSUE REMOVED OR ALTERED: Biopsies obtained in the stomach rule out Helicobacter pylori COMPLICATIONS: None. ESTIMATED BLOOD LOSS: None. INTRAOPERATIVE FINDINGS: As described above. PROCEDURE: Patient tolerated procedure well. No immediate postprocedure complications are noted. Patient sent back to her room in good condition. Diet can start clears and advance as tolerated Resume previous activity level Outpatient manometry study.
[2017-02-07 17:12] VITALS: BP 118/73
--- NOTE | 2017-02-07 17:22 | PDOC DISCHARGE SUMMARY ---
General - Admit/Disc Date/PCP Admission Date/Primary Care Provider: 02/06/17 09:51 Discharge Date: 02/07/17 - Discharge Diagnosis (1) Chest pain Is this a current diagnosis for this admission?: YesSummary: atypical and unlikely cardiac in nature as he ruled out for acute ischemia with negative enzymes and echo; unclear etiology but still suspect GI source with relatively negative EGD showing only anatomic tortuousity and possible tertiary contractions. he should f/u with dr walker in 1-2 wks for outpt manometry testing and continue PPI awaiting Bx results from the EGD and H Pylori testing. (2) Thoracoabdominal aortic aneurysm (TAAA) without rupture Is this a current diagnosis for this admission?: YesSummary: 3.8cm in diameter and no aortic valve abnl's; needs to keep his BP <125/85 and have f/u imaging in the next 6 months (3) Abnormal CT scan, esophagus Is this a current diagnosis for this admission?: YesSummary: f/u as described above (4) ETOH abuse Is this a current diagnosis for this admission?: YesSummary: counseled regarding gradual cessation over the next 4-6 weeks by cutting his dose in half every week. seems willing to try (5) Anemia, normocytic normochromic Is this a current diagnosis for this admission?: YesSummary: mild. stools negative. f/u wtih PCP for further testing. he is right age for colonoscopy, f/u dr walker (6) Cocaine abuse Is this a current diagnosis for this admission?: YesSummary: counseled regarding cessation and dangers related to his TAA and blood pressures , states a willingness to stop, we'll see (7) Uncontrolled hypertension Is this a current diagnosis for this admission?: YesSummary: well controlled on current regimen; Rxs provided. f/u with PCP in 1-2 wks for further titration (8) Carotid bruit Is this a current diagnosis for this admission?: YesSummary: dopplers show bilat soft, nonocclussive, insignificant plaque but with elevated chol he needs to be on statin and adjust his diet accordingly. consider prophylactic ASA, will defer to his PCP once workup of his anemia completed as outpt (9) Hyperlipidemia Is this a current diagnosis for this admission?: YesSummary: start statin and defer to PCP for f/u - Additional Information Resuscitation Status: Full Code Discharge Diet: As Tolerated Discharge Activity: Activity As Tolerated Home Medications: Ferrous Sulfate [Feosol 325 mg Tablet] 325 mg PO DAILY 02/06/17 Atorvastatin Calcium [Lipitor 20 mg Tablet] 20 mg PO QHS #30 tablet 02/07/17 Lisinopril [Prinivil 10 mg Tablet] 20 mg PO DAILY #30 tablet 02/07/17 Metoprolol Tartrate [Lopressor 25 mg Tablet] 12.5 mg PO Q12 #60 tablet 02/07/17 Pantoprazole Sodium [Protonix] 40 mg PO DAILY #30 tablet. 02/07/17 History of Present Illness Patient complains of: chest pain History of Present Illness: KIERA SOTO is a 57 year old male presents from home with sudden onset substernal sharp, stabbing, constant chest pain radiating to his back between his shoulder blades about 2 hrs after eating dinner that awakened him from sleep. Hospital Course Hospital Course: there were no other asct'd symptoms of arm/jaw pain, diaphoresis, palpitations, n/v, hematemesis, cough with fever/chills, ZIMMERMAN, dizziness, syncope/presyncope, numbness/tingling or dyspnea. he's never had anything like this before, never required cardiac evaluation in the past. he c/o constant chronic heartburn treated with food avoidance of acidic foods and OTC gasEx at least twice a month , no PPI. he has never undergone EGD and no hx of esophageal or gastric evaluation or abnormalities. eval in ED shows negative Mary x2, ecg neg for acute ischemic changes but cta chest has a couple of abnl's including TAA 3.8cm and no mention of dissection, and diffuse esophageal thickening and dilatation along its length with large fluid collection but no masses. we were asked to admit for further eval and management. he admits to recent cocaine snorting on Saturday and also ran out of his HTN meds same day, takes lotrel 20/12.5 daily. he admits to 6 beers daily, more on the weekends and sharing a bottle of gin with friends that lasts about 2 days between them. He admits to legal problems related to his ETOH use in the past and has been in AA but never had withdrawal or seizures as a result, never admitted to hospital for ETOH before. He has a strong family hx of early AMI with Mom in her 60's and Dad in his 50's but FMH of Marfan's, connective tissue d/o's, aneurysms or CVA's. He denies tob, IVDA and THC. he ruled out for acute ischemia with negative enzymes and negative echo. GI consulted and performed EGD with no acute findings, just chronic changes and Bx' s taken, dr walker suggesting manometry as an outpt. at this point he remains chest pain free, his BPs much better control, rest of his evaluation unremarkable aside from findings noted above; treatment plan outlined above. stable for d/c home at this time. he expresses no concerns to me about going home at this time. Physical Exam Vital Signs: Temp Pulse Resp BP Pulse Ox 97.8 F 63 13 111/68 100 02/07/17 15:45 02/07/17 15:45 02/07/17 15:45 02/07/17 15:45 02/07/17 15:45 Intake & Output 02/06/17 02/07/17 02/08/17 06:59 06:59 06:59 Intake Total 493 390 Output Total 700 0 Balance -207 390 Weight 69.8 kg General appearance: PRESENT: no acute distress, well-developed, well-nourished Head exam: PRESENT: atraumatic, normocephalic Eye exam: PRESENT: EOMI Mouth exam: PRESENT: moist Respiratory exam: PRESENT: clear to auscultation [place]. ABSENT: accessory muscle use Neurological exam: PRESENT: alert, awake, oriented to person, oriented to place , oriented to time, oriented to situation Results Laboratory Results: 02/07/17 04:44 02/07/17 04:44 02/06/17 02/07/17 02/07/17 20:30 04:44 04:44 WBC 5.5 RBC 3.68 L Hgb 11.0 L Hct 33.0 L MCV 90 MCH 29.9 MCHC 33.4 RDW 16.8 H Plt Count 394 Sodium 142.2 Potassium 4.3 Chloride 104 Carbon Dioxide 26 Anion Gap 12 BUN 12 Creatinine 1.30 H Est GFR ( Amer) > 60 Est GFR (Non-Af Amer) 57 L Glucose 92 Calcium 9.9 Triglycerides 71 Cholesterol 218.19 H LDL Cholesterol Direct 135 H VLDL Cholesterol 14.0 HDL Cholesterol 58 Stool Occult Blood NEGATIVE 02/06/17 02/06/17 12:00 18:35 Troponin I < 0.012 < 0.012 Impressions: Chest X-Ray 02/06/17 02:26 IMPRESSION: NO ACUTE RADIOGRAPHIC FINDING IN THE CHEST. Chest/Abdomen CTA 02/06/17 03:52 IMPRESSION: NO ABDOMINAL AORTIC ANEURYSM, DISSECTION OR SIGNIFICANT STENOSIS. NO SIGNIFICANT FINDINGS IN THE ABDOMEN. Abnormal CT of the chest reported separately. Carotid Doppler Study 02/06/17 09:58 IMPRESSION: NO HEMODYNAMICALLY SIGNIFICANT STENOSIS. Qualifiers PATEINT BEING DISCHARGED WITH ANY OF THE FOLLOWING DIAGNOSIS?: No VTE patient discharged on overlapping Therapy?: No Reason(s) for not prescribing Overlap Therapy:: Not indicated Plan Discharge Plan: home with several new meds outlined above; f/uwith PCP in 1-2 wks; return to the ED immediately for recurrent or worsening symptoms, may need stress testing if persist.
[2017-02-07] MEDS ORDERED: METOPROLOL TARTRATE 25 MG TABLET PO SCH (22:00)
[2017-02-08] MEDS ORDERED: LISINOPRIL 10 MG TABLET PO SCH (10:00)
== END 2017-02-07 17:46 | disposition home or self-care (01) ==
LOC: ER 00:58 → UNDOADMOB 07:55 → EH 07:55 → 4W 13:00 → 4S 02-07 10:31
PROVIDERS: ADMIT Internal Medicine; ATTEND Internal Medicine
PROC: 0DB68ZX Excision of Stomach, Via Natural or Artificial Opening Endoscopic, Diagnostic (ICD-10-PCS; principal; 2017-02-07 12:00)
DX: R07.89 Other chest pain (principal); I71.6 Thoracoabdominal aortic aneurysm, without rupture; K22.8 Other specified diseases of esophagus; K29.50 Unspecified chronic gastritis without bleeding; B96.81 Helicobacter pylori [H. pylori] as the cause of diseases classified elsewhere; F10.10 Alcohol abuse, uncomplicated; Z71.41 Alcohol abuse counseling and surveillance of alcoholic; D64.9 Anemia, unspecified; F14.10 Cocaine abuse, uncomplicated; I10 Essential (primary) hypertension; R09.89 Other specified symptoms and signs involving the circulatory and respiratory systems; E78.5 Hyperlipidemia, unspecified; K21.9 Gastro-esophageal reflux disease without esophagitis; Z79.899 Other long term (current) drug therapy; Z82.49 Family history of ischemic heart disease and other diseases of the circulatory system; Z90.49 Acquired absence of other specified parts of digestive tract; Z87.891 Personal history of nicotine dependence
CPT/HCPCS: 93005 ×2; 99285; 96374; 43239; 36415 ×2; 82553; 82150; 82550; 83690; 83735; 84100; 85025; 85027; 85610; 85730; 82272; 80048; 80053; 81001; 84484; 80307; 83036; 85379; 80061; 88342 ×2; 88305 ×2; 93306; 93880; 71010; 71275; 74175; 93010 ×2; G0378 ×3; J2250; J1650 ×2; J2060; S0164 ×2; J3490; J2704; 740; J3010

== ENCOUNTER 2017-02-09 17:29 | Emergency (ER) | payer BC ==
[2017-02-09] MEDS ORDERED: CLONIDINE HCL 0.2 MG TABLET PO ONE (17:42)
[2017-02-09 18:05] LABS: ABSOLUTE EOSINOPHILS # (AUTO) 0.4 10^3/uL (0.0-0.6); ABSOLUTE LYMPHOCYTES (AUTO) 4.1 10^3/uL (0.5-4.7); ABSOLUTE MONOCYTES (AUTO) 0.6 10^3/uL (0.1-1.4); ABSOLUTE NEUT (AUTO) 2.2 10^3/uL (1.7-8.2); BASOPHILS % (AUTO) 0.6 % (0-2); EOSINOPHILS % (AUTO) 4.8 % (0-6); HEMATOCRIT 30.2 % (37.9-51.0); HEMOGLOBIN 10.1 g/dL (13.5-17.0); HGB HCT DIFFERENCE 0.1; LYMPHOCYTES % (AUTO) 56.5 % (13-45); MEAN CORPUSCULAR HEMOGLOBIN 29.8 pg (27.0-33.4); MEAN CORPUSCULAR HGB CONC 33.6 g/dL (32.0-36.0); MEAN CORPUSCULAR VOLUME 89 fl (80-97); RED CELL DISTRIBUTION WIDTH 16.4 % (11.5-14.0); SEGMENTED NEUTROPHILS % (AUTO) 30.1 % (42-78); WHITE BLOOD COUNT 7.4 10^3/uL (4.0-10.5)
[2017-02-09 18:25] LABS: ALANINE AMINOTRANSFERASE 25 U/L (21-72); ALBUMIN 4.5 g/dL (3.5-5.0); ALKALINE PHOSPHATASE 60 U/L (38-126); ANION GAP 12 (5-19); ASPARTATE AMINO TRANSFERASE 24 U/L (17-59); BILIRUBIN,DIRECT 0.4 mg/dL (0.0-0.4); BILIRUBIN,TOTAL 0.7 mg/dL (0.2-1.3); BLOOD UREA NITROGEN 13 mg/dL (7-20); CALCIUM 9.3 mg/dL (8.4-10.2); CARBON DIOXIDE 24 mmol/L (22-30); CHLORIDE 103 mmol/L (98-107); CREATININE RESULT 1.42 mg/dL (0.52-1.25); GLUCOSE 114 mg/dL (75-110); POTASSIUM 4.4 mmol/L (3.6-5.0); SODIUM 139.1 mmol/L (137-145); TOTAL PROTEIN 7.8 g/dL (6.3-8.2)
--- NOTE | 2017-02-09 19:13 | ER Document Report ---
ED Blood Pressure Problem - General Chief Complaint: High Blood Pressure Stated Complaint: BLOOD PRESSURE ISSUES Time Seen by Provider: 02/09/17 19:08 Mode of Arrival: Ambulatory Information source: Patient TRAVEL OUTSIDE OF THE [place] IN LAST 30 DAYS: No - HPI Patient complains to provider of: High blood pressure Onset: This morning - Related Data Allergies/Adverse Reactions: No Known Allergies Allergy (Verified 02/09/17 17:45) Home Medications: Current Home Medications Metoprolol Succinate 12.5 mg PO BID 02/09/17 [History] Past Medical History - General Information source: Patient - Social History Smoking Status: Never Smoker Cigarette use (# per day): No Chew tobacco use (# tins/day): No Smoking Education Provided: No Frequency of alcohol use: None Drug Abuse: None Family History: CAD. denies: CVA, Malignancy - Past Medical History Cardiac Medical History: Reports: Hx Hypertension Denies: Hx Heart Attack, Hx Hypercholesterolemia Renal/ Medical History: Denies: Hx Peritoneal Dialysis Psychiatric Medical History: Denies: Hx Depression Past Surgical History: Reports: Hx Appendectomy - Immunizations Hx Diphtheria, Pertussis, Tetanus Vaccination: Yes Review of Systems - Review of Systems Constitutional: No symptoms reported EENT: No symptoms reported Cardiovascular: No symptoms reported Respiratory: No symptoms reported Gastrointestinal: No symptoms reported Musculoskeletal: No symptoms reported -: Yes All other systems reviewed and negative Physical Exam - Vital signs Vitals: Temp Pulse Resp BP Pulse Ox 98.9 F 75 18 196/94 H 100 02/09/17 17:33 02/09/17 17:33 02/09/17 17:33 02/09/17 17:33 02/09/17 17:33 - General General appearance: Appears well In distress: None - HEENT Head: Normocephalic Pharynx: Normal Neck: Normal - Respiratory Respiratory status: No respiratory distress Breath sounds: Normal - Cardiovascular Rhythm: Regular Heart sounds: Normal auscultation Course - Re-evaluation Re-evalutation: 02/09/17 19:10 pt feels well at time of d/c -- BP 140/84 -- pt. expressed desire to go home - Vital Signs Vital signs: Temp Pulse Resp BP Pulse Ox 98.9 F 75 18 140/84 H 100 02/09/17 17:33 02/09/17 17:33 02/09/17 17:33 02/09/17 19:05 02/09/17 17:33 - Laboratory Result Diagrams: 02/09/17 17:50 02/09/17 17:50 Laboratory results interpreted by me: 02/09/17 02/09/17 17:50 17:50 RBC 3.40 L Hgb 10.1 L Hct 30.2 L RDW 16.4 H Seg Neutrophils % 30.1 L Lymphocytes % 56.5 H Creatinine 1.42 H Est GFR (Non-Af Amer) 52 L Glucose 114 H Discharge - Discharge Clinical Impression: HTN (hypertension) Qualifiers: Hypertension type: unspecified Qualified Code(s): I10 - Essential (primary) hypertension Condition: Stable Disposition: HOME, SELF-CARE Instructions: Clonidine (Catapres) ([facility]) Additional Instructions: rest, take meds as prescribed, return if worse Prescriptions: Clonidine HCl [Catapres 0.1 mg Tablet] 0.1 mg PO Q12 #60 tablet Referrals: JONNA WALLACE MD [[facility] STAFF] - Follow up as needed
[2017-02-09 19:18] VITALS: BP 151/98
== END 2017-02-09 19:16 | disposition home or self-care (01) ==
LOC: ER 17:29
DX: I10 Essential (primary) hypertension (principal)
CPT/HCPCS: 36415; 80053; 85025; 99283

== ENCOUNTER 2017-02-13 23:07 | Emergency (ER) | payer BC ==
[2017-02-13 23:16] VITALS: BP 170/83
== END 2017-02-14 00:04 | disposition left against medical advice (07) ==
LOC: ER 23:07
DX: Z53.21 Procedure and treatment not carried out due to patient leaving prior to being seen by health care provider (principal)

== ENCOUNTER 2017-03-09 20:43 | Emergency (ER) | payer BC ==
[2017-03-09 20:56] VITALS: BP 159/95
--- NOTE | 2017-03-09 21:24 | ER Document Report ---
ED General - General Chief Complaint: Chest Pain Stated Complaint: CHEST PAIN Time Seen by Provider: 03/09/17 21:02 Notes: Patient is a 57-year-old male who comes emergency department for chief complaint of discomfort in his chest, he states that he was eating and he swallowed food, he believes it was chicken, he states that it felt like it got stuck in his chest. He states that after coming to the emergency department symptoms resolved. He states he thinks he passed through. He denies any symptoms now. He denies any nausea or vomiting, shortness of breath, diaphoresis, pain in his back, dizziness, or abdominal pain. Patient has a known history of a tortuous esophagus with history of esophagitis, he states he is currently treated for H pylori and he is doing much better with his GERD symptoms. He also has a known history of thoracic aortic aneurysm which is supposed to be monitored in about 5 months. He also has hypertension and history of alcohol and cocaine abuse, however he states that he is "clean". He has been following up with specialists and he has all his medications and he knows all of them. His is with him. TRAVEL OUTSIDE OF THE [place] IN LAST 30 DAYS: No - Related Data Allergies/Adverse Reactions: No Known Allergies Allergy (Verified 03/09/17 20:54) Past Medical History - General Information source: Patient - Social History Smoking Status: Never Smoker Frequency of alcohol use: None Drug Abuse: None Lives with: Family Family History: CAD. denies: CVA, Malignancy Patient has suicidal ideation: No Patient has homicidal ideation: No - Past Medical History Cardiac Medical History: Reports: Hx Hypertension Denies: Hx Heart Attack, Hx Hypercholesterolemia Renal/ Medical History: Denies: Hx Peritoneal Dialysis Psychiatric Medical History: Denies: Hx Depression Past Surgical History: Reports: Hx Appendectomy - Immunizations Hx Diphtheria, Pertussis, Tetanus Vaccination: Yes Review of Systems - Review of Systems Constitutional: No symptoms reported EENT: No symptoms reported Cardiovascular: No symptoms reported Respiratory: No symptoms reported Gastrointestinal: See HPI Genitourinary: No symptoms reported Male Genitourinary: No symptoms reported Musculoskeletal: No symptoms reported Skin: No symptoms reported Hematologic/Lymphatic: No symptoms reported Neurological/Psychological: No symptoms reported Physical Exam - Vital signs Vitals: Temp Pulse Resp BP Pulse Ox 98.2 F 70 18 159/95 H 100 03/09/17 20:54 03/09/17 20:54 03/09/17 20:54 03/09/17 20:54 03/09/17 20:54 Interpretation: Normal - General General appearance: Appears well, Alert In distress: None - HEENT Head: Normocephalic, Atraumatic Eyes: Normal Pupils: PERRL - Respiratory Respiratory status: No respiratory distress Chest status: Nontender Breath sounds: Normal. No: Decreased air movement Chest palpation: Normal - Cardiovascular Rhythm: Regular. No: Tachycardia Heart sounds: Normal auscultation, S1 appreciated, S2 appreciated Murmur: No - Abdominal Inspection: Normal Distension: No distension Bowel sounds: Normal Tenderness: Nontender. No: Tender, Guarding Organomegaly: No organomegaly - Back Back: Normal, Nontender. No: Tender - Extremities General upper extremity: Normal inspection, Nontender, Normal color, Normal ROM , Normal temperature General lower extremity: Normal inspection, Nontender, Normal color, Normal ROM , Normal temperature, Normal weight bearing. No: John's sign - Neurological Neuro grossly intact: Yes Cognition: Normal Orientation: AAOx4 [place] Coma Scale Eye Opening: Spontaneous Maxim Coma Scale Verbal: Oriented Maxim Coma Scale Motor: Obeys Commands Maxim Coma Scale Total: 15 Speech: Normal Motor strength normal: LUE, RUE, LLE, RLE Sensory: Normal - Psychological Associated symptoms: Normal affect, Normal mood - Skin Skin Temperature: Warm Skin Moisture: Dry Skin Color: Normal Course - Re-evaluation Re-evalutation: EKG shows sinus rhythm with no T-wave inversions or ST segment changes in consecutive leads. Chest x-ray is unremarkable. CBC, chemistry at baseline. Troponin negative. Patient is clearly proud of his abstaining from both alcohol and cocaine and his is very supportive of this. However patient does not have chest pain. Patient had pain with food bolus stuck in his throat which he then passed. He is already following up with gastroenterology for additional monitoring and evaluation because of his difficulties with easy esophagus and H. pylori. He is being treated for this already. Patient states he feels great now and he wants to leave. I feel this is appropriate because his food bolus problem has resolved on its own. Discussed return precautions in detail. Patient states understanding and agreement. - Vital Signs Vital signs: Temp Pulse Resp BP Pulse Ox 98.2 F 70 30 H 159/95 H 100 03/09/17 20:54 03/09/17 20:54 03/09/17 22:00 03/09/17 20:54 03/09/17 22:00 - Laboratory Result Diagrams: 03/09/17 21:15 03/09/17 21:15 Laboratory results interpreted by me: 03/09/17 03/09/17 21:15 21:15 RBC 3.50 L Hgb 10.5 L Hct 30.4 L RDW 16.3 H Seg Neutrophils % 40.3 L Lymphocytes % 48.6 H Chloride 97 L BUN 21 H Creatinine 1.39 H Est GFR (Non-Af Amer) 53 L Creatine Kinase 179 H Total Protein 8.3 H Albumin 5.1 H Discharge - Discharge Clinical Impression: Obstruction of esophagus Condition: Stable Disposition: HOME, SELF-CARE Additional Instructions: Your workup does not show any concerning abnormalities. It appears the food bolus that got stuck has passed. Break food into smaller pieces and chew thoroughly. Continue follow-ups with both gastroenterology and your providers. Continue excellent work with avoiding dangerous substances. Return to the emergency department for any concerning symptoms. Forms: Elevated Blood Pressure Referrals: THU JAMISON MD [Primary Care Provider] - Follow up as needed
[2017-03-09 21:42] LABS: ALANINE AMINOTRANSFERASE 30 U/L (21-72); ALBUMIN 5.1 g/dL (3.5-5.0); ALKALINE PHOSPHATASE 78 U/L (38-126); ANION GAP 16 (5-19); ASPARTATE AMINO TRANSFERASE 29 U/L (17-59); BILIRUBIN,DIRECT 0.4 mg/dL (0.0-0.4); BILIRUBIN,TOTAL 0.9 mg/dL (0.2-1.3); BLOOD UREA NITROGEN 21 mg/dL (7-20); CALCIUM 9.9 mg/dL (8.4-10.2); CARBON DIOXIDE 27 mmol/L (22-30); CHLORIDE 97 mmol/L (98-107); CREATINE KINASE 179 U/L (55-170); CREATININE RESULT 1.39 mg/dL (0.52-1.25); GLUCOSE 93 mg/dL (75-110); POTASSIUM 3.6 mmol/L (3.6-5.0); SODIUM 140.1 mmol/L (137-145); TOTAL PROTEIN 8.3 g/dL (6.3-8.2)
[2017-03-09 21:51] LABS: ABSOLUTE BASOPHILS # (AUTO) 0.1 10^3/uL (0.0-0.2); ABSOLUTE EOSINOPHILS # (AUTO) 0.2 10^3/uL (0.0-0.6); ABSOLUTE LYMPHOCYTES (AUTO) 2.9 10^3/uL (0.5-4.7); ABSOLUTE MONOCYTES (AUTO) 0.4 10^3/uL (0.1-1.4); ABSOLUTE NEUT (AUTO) 2.4 10^3/uL (1.7-8.2); BASOPHILS % (AUTO) 1.2 % (0-2); EOSINOPHILS % (AUTO) 3.8 % (0-6); HEMATOCRIT 30.4 % (37.9-51.0); HEMOGLOBIN 10.5 g/dL (13.5-17.0); HGB HCT DIFFERENCE 1.1; LYMPHOCYTES % (AUTO) 48.6 % (13-45); MEAN CORPUSCULAR HGB CONC 34.5 g/dL (32.0-36.0); MEAN CORPUSCULAR VOLUME 87 fl (80-97); MONOCYTES % (AUTO) 6.1 % (3-13); RED CELL DISTRIBUTION WIDTH 16.3 % (11.5-14.0); SEGMENTED NEUTROPHILS % (AUTO) 40.3 % (42-78); WHITE BLOOD COUNT 6.1 10^3/uL (4.0-10.5)
[2017-03-09 21:54] LABS: CREATINE KINASE MB 1.23 ng/mL (<4.55)
[2017-03-09 21:55] LABS: TROPONIN I < 0.012 ng/mL
--- NOTE | 2017-03-09 21:59 | RADIOLOGY REPORT (SQ) ---
EXAM DESCRIPTION: CHEST SINGLE VIEW COMPLETED DATE/TIME: 03/09/2017 9:39 pm REASON FOR STUDY: chest pain COMPARISON: 02/06/2017 EXAM PARAMETERS: NUMBER OF VIEWS: One view. TECHNIQUE: Single frontal radiographic view of the chest acquired. RADIATION DOSE: NA LIMITATIONS: None. FINDINGS: LUNGS AND PLEURA: No opacities, masses or pneumothorax. No pleural effusion. MEDIASTINUM AND HILAR STRUCTURES: No masses. Contour normal. HEART AND VASCULAR STRUCTURES: Heart normal in size. Normal vasculature. BONES: No acute findings. HARDWARE: None in the chest. OTHER: No other significant finding. IMPRESSION: NO ACUTE RADIOGRAPHIC FINDING IN THE CHEST. TECHNICAL DOCUMENTATION: JOB ID: [id number]
--- NOTE | 2017-03-10 08:07 | EKG REPORT ---
SEVERITY:- NORMAL ECG - SINUS RHYTHM : Confirmed by: Deng Bacon MD 10-Mar-2017 08:06:28
== END 2017-03-09 22:53 | disposition home or self-care (01) ==
LOC: ER 20:43
DX: T18.128A Food in esophagus causing other injury, initial encounter (principal); X58.XXXA Exposure to other specified factors, initial encounter; R07.9 Chest pain, unspecified; I10 Essential (primary) hypertension
CPT/HCPCS: 36415; 71010; 80053; 82550; 82553; 84484; 85025; 93005; 93010; 99285

== ENCOUNTER 2017-07-27 21:50 | Emergency (ER) | payer BC ==
[2017-07-27 22:22] VITALS: BP 140/88
--- NOTE | 2017-07-27 22:29 | ER Document Report ---
ED General - General Chief Complaint: High Blood Pressure Stated Complaint: POSSIBLE BLOOD PRESSURE ISSUES Time Seen by Provider: 07/27/17 21:59 Notes: Patient is a 57-year-old male with a past medical history of a thoracic aortic aneurysm, hypertension, prior cocaine abuse who presents with concerns of elevated blood pressure readings. Patient states that he has been checking his blood pressure 4-5 times daily and noticed that several of his readings were in the 150 systolic today which prompted him to come to the emergency department. He states he has been taking all medications as directed. He denies any additional symptoms. He has not spoken to his primary doctor regarding these concerns. He denies any chest pain, shortness of breath or syncope. He does admit that he believes his anxiety seems to raise his blood pressure. He has not noted that anything seems to prevent this. TRAVEL OUTSIDE OF THE [place] IN LAST 30 DAYS: No - Related Data Allergies/Adverse Reactions: No Known Allergies Allergy (Verified 07/27/17 21:54) Past Medical History - General Information source: Patient - Social History Smoking Status: Former Smoker Frequency of alcohol use: None Drug Abuse: None Lives with: Spouse/Significant other Family History: Reviewed & Not Pertinent, CAD. denies: CVA, Malignancy - Past Medical History Cardiac Medical History: Reports: Hx Hypertension Denies: Hx Heart Attack, Hx Hypercholesterolemia Renal/ Medical History: Denies: Hx Peritoneal Dialysis Psychiatric Medical History: Denies: Hx Depression Past Surgical History: Reports: Hx Appendectomy - Immunizations Hx Diphtheria, Pertussis, Tetanus Vaccination: Yes Review of Systems - Review of Systems Notes: Constitutional: Negative for fever. HENT: Negative for sore throat. Eyes: Negative for visual changes. Cardiovascular: Negative for chest pain. Respiratory: Negative for shortness of breath. Gastrointestinal: Negative for abdominal pain, vomiting or diarrhea. Genitourinary: Negative for dysuria. Musculoskeletal: Negative for back pain. Skin: Negative for rash. Neurological: Negative for headaches, weakness or numbness. 10 point ROS negative except as marked above and in HPI. Physical Exam - Vital signs Vitals: Temp Pulse Resp BP Pulse Ox 97.9 F 72 16 162/89 H 98 07/27/17 21:54 07/27/17 21:54 07/27/17 21:54 07/27/17 21:54 07/27/17 21:54 Interpretation: Hypertensive Notes: PHYSICAL EXAMINATION: GENERAL: Well-appearing, well-nourished and in no acute distress. HEAD: Atraumatic, normocephalic. EYES: Pupils equal round and reactive to light, extraocular movements intact, sclera anicteric, conjunctiva are normal. ENT: nares patent, oropharynx clear without exudates. Moist mucous membranes. NECK: Normal range of motion, supple without lymphadenopathy LUNGS: Breath sounds clear to auscultation bilaterally and equal. No wheezes rales or rhonchi. HEART: Regular rate and rhythm without murmurs ABDOMEN: Soft, nontender, normoactive bowel sounds. No guarding, no rebound. No masses appreciated. EXTREMITIES: Normal range of motion, no pitting or edema. No cyanosis. NEUROLOGICAL: No focal neurological deficits. Moves all extremities spontaneously and on command. PSYCH: Normal mood, normal affect. SKIN: Warm, Dry, normal turgor, no rashes or lesions noted. Course - Re-evaluation Re-evalutation: 07/27/17 22:10 Presentation of asymptomatic hypertension. Patient denies any symptoms concerning for SAH, dissection, TN, or encephalopaty. Alert, oriented, and denies any symptoms at time of assessment. Normal neuro exam. Per [facility] policy guidelines, will therefore not obtain any labs or EKG at this time and will not initiate new BP treatment. I have discussed critical importance of follow up with PCP within 1 week and increased risk of devastating stroke, heart attack, respiratory distress, and other life threatening complications if blood pressure is not reduced appropriately. Diet and exercise habits also discussed. At this time will discharge with return precautions and follow-up recommendations. Verbal discharge instructions given a the bedside and opportunity for questions given. Medication warnings reviewed. Patient is in agreement with this plan and has verbalized understanding of return precautions and the need for primary care follow-up in the next 24-72 hours. - Vital Signs Vital signs: Temp Pulse Resp BP Pulse Ox 98.6 F 76 18 140/88 H 98 07/27/17 22:21 07/27/17 22:21 07/27/17 22:21 07/27/17 22:21 07/27/17 22:21 Discharge - Discharge Clinical Impression: Essential hypertension Condition: Good Disposition: HOME, SELF-CARE Additional Instructions: You were seen today for blood pressure that was high. This is a long-term risk factor for multiple medical problems including heart attack and stroke. However, the blood pressure in of itself will not cause you to have an acute stroke or heart attack over the course of just several days or weeks. You need to have a gradual reduction of your blood pressure back to normal levels over the next several months in conjunction with your primary care physician. Return if you develop headache, weakness, numbness, chest pain, pass out, or have any other symptoms that are concerning to you.
== END 2017-07-27 22:23 | disposition home or self-care (01) ==
LOC: ER 21:50
DX: I10 Essential (primary) hypertension (principal); Z87.891 Personal history of nicotine dependence; Z79.899 Other long term (current) drug therapy
CPT/HCPCS: 99283

== ENCOUNTER 2017-09-02 22:17 | Emergency (ER) | payer BC ==
[2017-09-02] MEDS ORDERED: ASPIRIN 81 MG TABLET, CHEWABLE PO ONE (22:28)
--- NOTE | 2017-09-02 23:12 | RADIOLOGY REPORT (SQ) ---
EXAM DESCRIPTION: CHEST SINGLE VIEW COMPLETED DATE/TIME: 09/02/2017 10:57 pm REASON FOR STUDY: chest pain COMPARISON: 06/26/2014 EXAM PARAMETERS: NUMBER OF VIEWS: One view. TECHNIQUE: Single frontal radiographic view of the chest acquired. RADIATION DOSE: NA LIMITATIONS: None. FINDINGS: LUNGS AND PLEURA: No acute opacities, masses or pneumothorax. No pleural effusion. MEDIASTINUM AND HILAR STRUCTURES: No masses. Contour normal. HEART AND VASCULAR STRUCTURES: Heart normal in size. Normal vasculature. BONES: No acute findings. HARDWARE: None in the chest. OTHER: No other significant finding. IMPRESSION: NO ACUTE RADIOGRAPHIC FINDING IN THE CHEST. TECHNICAL DOCUMENTATION: JOB ID: [id number] [place]-72 2010 [employer]- All Rights Reserved Reading location - IP/workstation name: [employer]
--- NOTE | 2017-09-03 00:23 | ER Document Report ---
ED Medical Screen (RME) - General Chief Complaint: Chest Pain Stated Complaint: CHEST PAIN Time Seen by Provider: 09/03/17 00:17 Mode of Arrival: Ambulatory Information source: Patient TRAVEL OUTSIDE OF THE [place] IN LAST 30 DAYS: No - HPI Patient complains to provider of: CHEST PAIN Notes: 09/03/17 00:21 The patient is here with complaints of chest pain. He states the pain is in the center of his chest and does not radiate. The pain is been intermittent for the last 3-4 hours. He denies shortness of breath, diaphoresis, nausea vomiting with this. He has a prior history of hypertension, high cholesterol. He denies a history of diabetes, smoking, drug use, CAD. He reports that he has a thoracic aortic aneurysm which he is due to have a CT to reevaluate on Saturday. Physical exam: No acute distress. Lungs are clear. Normal pulses. An initial examination was made on the patient as part of the triage process, and it was determined a more comprehensive evaluation was necessary. Initial labs were ordered and patient was transferred to another provider in the ED who assumed care and finished evaluation and plan. - Related Data Allergies/Adverse Reactions: No Known Allergies Allergy (Verified 07/27/17 21:54) Past Medical History - Past Medical History Cardiac Medical History: Reports: Hx Hypertension Denies: Hx Heart Attack, Hx Hypercholesterolemia Renal/ Medical History: Denies: Hx Peritoneal Dialysis Psychiatric Medical History: Denies: Hx Depression Past Surgical History: Reports: Hx Appendectomy - Immunizations Hx Diphtheria, Pertussis, Tetanus Vaccination: Yes Physical Exam - Vital signs Vitals: Temp Pulse Resp BP Pulse Ox 97.5 F 56 L 16 170/88 H 99 09/02/17 22:28 09/02/17 22:28 09/02/17 22:28 09/02/17 22:28 09/02/17 22:28 Course - Vital Signs Vital signs: Temp Pulse Resp BP Pulse Ox 97.5 F 56 L 16 170/88 H 99 09/02/17 22:28 09/02/17 22:28 09/02/17 22:28 09/02/17 22:28 09/02/17 22:28
[2017-09-03 01:17] LABS: ABSOLUTE BASOPHILS # (AUTO) 0.1 10^3/uL (0.0-0.2); ABSOLUTE EOSINOPHILS # (AUTO) 0.3 10^3/uL (0.0-0.6); ABSOLUTE LYMPHOCYTES (AUTO) 3.7 10^3/uL (0.5-4.7); ABSOLUTE MONOCYTES (AUTO) 0.4 10^3/uL (0.1-1.4); ABSOLUTE NEUT (AUTO) 3.5 10^3/uL (1.7-8.2); BASOPHILS % (AUTO) 0.9 % (0-2); EOSINOPHILS % (AUTO) 3.2 % (0-6); HEMATOCRIT 31.9 % (37.9-51.0); HEMOGLOBIN 10.8 g/dL (13.5-17.0); LYMPHOCYTES % (AUTO) 46.5 % (13-45); MEAN CORPUSCULAR HEMOGLOBIN 28.5 pg (27.0-33.4); MEAN CORPUSCULAR HGB CONC 33.7 g/dL (32.0-36.0); MEAN CORPUSCULAR VOLUME 85 fl (80-97); MONOCYTES % (AUTO) 5.7 % (3-13); PLATELET COUNT 441 10^3/uL (150-450); RED BLOOD COUNT 3.77 10^6/uL (4.35-5.55); RED CELL DISTRIBUTION WIDTH 18.6 % (11.5-14.0); SEGMENTED NEUTROPHILS % (AUTO) 43.7 % (42-78); TOTAL CELLS COUNTED % (AUTO) 100 %; WHITE BLOOD COUNT 7.9 10^3/uL (4.0-10.5)
[2017-09-03] MEDS ORDERED: NORMAL SALINE 500 ML IV ONE (01:21)
--- NOTE | 2017-09-03 01:23 | ER Document Report ---
ED General - General Chief Complaint: Chest Pain Stated Complaint: CHEST PAIN Time Seen by Provider: 09/03/17 00:17 Mode of Arrival: Ambulatory Notes: Patient is a pleasant 57-year-old male with a history of a thoracic aneurysm presents with complaint of chest pain. He said he had similar chest pain back in January. Was evaluated here and at that time the aneurysm was found. At that time was related to food stuck in esophagus. So this time he had the same pain that started about 45 minutes after eating. He said he drinks water and and the sensation is just went away. He says it then returned about an hour later but was much more milder and now has gone again. He says he feels it is related to food in reflux like it was before; however, he has a history of aneurysm and is due for his repeat CT scan on Saturday and therefore he want to come and get checked out. He denies any history of coronary disease. He has a previous history of cocaine but has not used cocaine in over 7 months. No recent fevers. No recent infections. No other complaints at this time. TRAVEL OUTSIDE OF THE [place] IN LAST 30 DAYS: No - Related Data Allergies/Adverse Reactions: No Known Allergies Allergy (Verified 07/27/17 21:54) Past Medical History - General Information source: Patient - Social History Smoking Status: Former Smoker Frequency of alcohol use: None Drug Abuse: None Family History: Reviewed & Not Pertinent, CAD. denies: CVA, Malignancy Patient has suicidal ideation: No Patient has homicidal ideation: No - Past Medical History Cardiac Medical History: Reports: Hx Hypercholesterolemia, Hx Hypertension Denies: Hx Heart Attack Renal/ Medical History: Reports: Hx Peritoneal Dialysis Psychiatric Medical History: Denies: Hx Depression Past Surgical History: Reports: Hx Appendectomy - Immunizations Hx Diphtheria, Pertussis, Tetanus Vaccination: Yes Review of Systems - Review of Systems Notes: My Normal Review Basic REVIEW OF SYSTEMS: CONSTITUTIONAL : Denies fever, chills, or sweats. Denies recent illness. EENT: Denies eye, ear, throat, or mouth pain or symptoms. Denies nasal or sinus congestion. CARDIOVASCULAR: Chest pain RESPIRATORY: Denies cough, cold, or chest congestion. Denies shortness of breath, difficulty breathing, or wheezing. GASTROINTESTINAL: Denies abdominal pain. Denies nausea, vomiting, or diarrhea. Denies constipation. Last BM: MUSCULOSKELETAL: Denies neck or back pain or joint pain or swelling. SKIN: Denies rash or skin lesions. NEUROLOGICAL: Denies altered mental status or loss of consciousness. Denies headache. Denies weakness or paralysis or loss of use of either side. Denies problems with gait or speech. Denies sensory or motor loss. ALL OTHER SYSTEMS REVIEWED AND NEGATIVE. Physical Exam - Vital signs Vitals: Temp Pulse Resp BP Pulse Ox 97.5 F 56 L 16 170/88 H 99 09/02/17 22:28 09/02/17 22:28 09/02/17 22:28 09/02/17 22:28 09/02/17 22:28 - Notes Notes: General Appearance: Well nourished, alert, cooperative, no acute distress, no obvious discomfort. Well-appearing. Vitals: reviewed, See vital signs table. Head: no swelling or tenderness to the head Eyes: PERRL, EOMI, Conjuctiva clear Lungs: No wheezing, No rales, No rhonci, No accessory muscle use, good air exchange bilaterally. Heart: Normal rate, Regular rythm, No murmur, no rub Abdomen: Normal BS, soft, No rigidity, No abdominal tenderness, No guarding, no rebound, no abdominal masses, no organomegaly Extremities: strength 5/5 in all extremities, good pulses in all extremities, no swelling or tenderness in the extremities, no edema. Skin: warm, dry, appropriate color, no rash Neuro: speech clear, oriented x 3, normal affect, responds appropriately to questions. Course - Re-evaluation Re-evalutation: 09/03/17 03:09 She says he continues to feel well. CT scan shows that there is no longer any evidence of a thoracic aneurysm. This shows some inflammation of the esophagus which would be consistent with his recent history that his chest pain did seem to be more GI related. He does not take anything for acid reflux. I will place him on Pepcid. I printed him off copy of his CT scan report. Encouraged him follow-up closely with his primary care doctor for reevaluation. I informed him he should still return to ER immediately if he has recurrent worsening chest pain, difficulty breathing, or feels unwell. Patient agrees with plan will be discharged home. Dictation of this chart was performed using voice recognition software; therefore, there may be some unintended grammatical errors. - Vital Signs Vital signs: Temp Pulse Resp BP Pulse Ox 97.5 F 56 L 16 170/88 H 97 09/02/17 22:28 09/02/17 22:28 09/02/17 22:28 09/02/17 22:28 09/03/17 01:11 - Laboratory Result Diagrams: 09/03/17 01:10 09/03/17 01:10 Laboratory results interpreted by me: 09/03/17 09/03/17 01:10 01:10 RBC 3.77 L Hgb 10.8 L Hct 31.9 L RDW 18.6 H Lymphocytes % 46.5 H BUN 23 H Direct Bilirubin 0.6 H Total Protein 9.5 H Albumin 5.2 H - EKG Interpretation by Me Additional EKG results interpreted by me: 09/03/17 01:24 EKG is reviewed and interpreted by me. EKG shows sinus rhythm with a rate of [address] segment elevation or depression. No ischemic T-wave inversions. [place] interval, QRS duration, QTc intervals are within normal range. Old EKG available for comparison is from March 09, 2017. Discharge - Discharge Clinical Impression: Chest pain Qualifiers: Chest pain type: unspecified Qualified Code(s): R07.9 - Chest pain, unspecified Condition: Good Disposition: HOME, SELF-CARE Instructions: Reflux Disease (GERD) ([facility]) Additional Instructions: Please take the Pepcid as prescribed. Please follow up with your doctor this week for reevaluation. Please return to the ER immediately if you develop recurrent chest pain, fevers, vomiting, black stools, or if you feel unwell. Please avoid Motrin, ibuprofen, Aleve, and Naprosyn. It is okay to take Tylenol. Please avoid spicy foods, acidic foods ,and fried foods. Prescriptions: Famotidine [Pepcid 40 mg Tablet] 40 mg PO DAILY #30 tablet Forms: Return to Work, Special Work Note
[2017-09-03 01:31] LABS: INTERNATIONAL RATION (INR) 1.04; PROTHROMBIN TIME 14.3 SEC (11.4-15.4)
[2017-09-03 01:32] LABS: PARTIAL THROMBOPLASTIN TIME 30.6 SEC (23.5-35.8)
[2017-09-03 01:34] LABS: ALANINE AMINOTRANSFERASE 34 U/L (21-72); ALBUMIN 5.2 g/dL (3.5-5.0); ALKALINE PHOSPHATASE 76 U/L (38-126); ANION GAP 15 (5-19); ASPARTATE AMINO TRANSFERASE 37 U/L (17-59); BILIRUBIN,DIRECT 0.6 mg/dL (0.0-0.4); BILIRUBIN,TOTAL 0.9 mg/dL (0.2-1.3); BLOOD UREA NITROGEN 23 mg/dL (7-20); CALCIUM 10.2 mg/dL (8.4-10.2); CARBON DIOXIDE 26 mmol/L (22-30); CHLORIDE 103 mmol/L (98-107); CREATINE KINASE 68 U/L (55-170); GLUCOSE 106 mg/dL (75-110); POTASSIUM 4.4 mmol/L (3.6-5.0); SODIUM 143.5 mmol/L (137-145); TOTAL PROTEIN 9.5 g/dL (6.3-8.2)
--- NOTE | 2017-09-03 02:33 | RADIOLOGY REPORT (SQ) ---
EXAM DESCRIPTION: CTA of the chest per PE protocol with contrast. CLINICAL HISTORY: CHEST PAIN, HX OF THORACIC AORTIC ANEURYSM. COMPARISON: 02/06/2017 TECHNIQUE: CTA of the chest obtained following the uncomplicated intravenous administration of 75 mL Isovue-370. 3-D/MIP reformatted images of the chest available for evaluation. FINDINGS: Chest: Mediastinal windows demonstrate an adequate contrast bolus. No pulmonary embolus identified. Visualized thyroid gland is unremarkable. Scar calcification of the thoracic aorta. Great vessels have normal anatomic configuration. No evidence of dissection or aneurysm of the thoracic aorta. No cardiomegaly, coronary artery atherosclerosis, or pericardial effusion. Redemonstrated dilated fluid-filled esophagus with thick da silva. Scattered mediastinal lymph nodes are not enlarged by CT criteria. Lung windows demonstrate no consolidation, pneumothorax, or pleural effusion. No abnormalities of the visualized trachea or airways. Limited images of the upper abdomen demonstrate no abnormalities of the visualized liver, spleen, pancreas, adrenal glands, gallbladder, or kidneys. No destructive osseous lesions. DLP: 620.70 mGycm IMPRESSION: 1. No pulmonary embolus identified. 2. No evidence of thoracic aortic aneurysm or dissection. 3. Redemonstrated diffuse esophageal dilation with wall thickening. This could be seen with esophageal motility disorder or achalasia. Other infectious, inflammatory, or neoplastic etiologies can produce a similar appearance. This exam was performed according to our departmental dose-optimization program, which includes automated exposure control, adjustment of the mA and/or kV according to patient size and/or use of iterative reconstruction technique.
[2017-09-03] MEDS ORDERED: FAMOTIDINE 20 MG TABLET PO ONE (03:10)
[2017-09-03 03:30] VITALS: BP 125/75
--- NOTE | 2017-09-03 09:10 | EKG REPORT ---
SEVERITY:- ABNORMAL ECG - SINUS RHYTHM CONSIDER ANTEROSEPTAL INFARCT : Confirmed by: Wilfrido Hernandez 03-Sep-2017 09:10:30
== END 2017-09-03 03:30 | disposition home or self-care (01) ==
LOC: ER 22:17
DX: R07.9 Chest pain, unspecified (principal); E78.00 Pure hypercholesterolemia, unspecified; I10 Essential (primary) hypertension
CPT/HCPCS: 93005; 99285; 36415; 82550; 85025; 85610; 85730; 80053; 84484; 71045; 71275; 93010; J7040

== ENCOUNTER 2018-01-07 17:27 | Emergency (ER) | payer BC ==
[2018-01-07] MEDS ORDERED: LIDOCAINE 2% VISCOUS SOLN 20 ML UDCUP PO ONE (18:15)
[2018-01-07] MEDS ORDERED: METOCLOPRAMIDE HCL ORAL SOLN 10 MG/10 ML UDCUP PO ONE (18:15)
[2018-01-07] MEDS ORDERED: MAG HYDROX/AL HYDROX/SIMETH SUSP 30 ML UDCUP PO ONE (18:15)
--- NOTE | 2018-01-07 18:17 | ER Document Report ---
ED GI/ - General Chief Complaint: Epigastric Pain Stated Complaint: ABDOMINAL PAIN Time Seen by Provider: 01/07/18 18:12 Notes: The patient is a 57-year-old male, past medical history GERD, presents with several days of epigastric burning sensation. He tried his ranitidine, but he is still having the burning sensation. Denies chest pain, shortness of breath, fevers, nausea, vomiting, urinary symptoms or rash. TRAVEL OUTSIDE OF THE [place] IN LAST 30 DAYS: No - Related Data Allergies/Adverse Reactions: No Known Allergies Allergy (Verified 01/07/18 17:28) Past Medical History - General Information source: Patient - Social History Smoking Status: Former Smoker Chew tobacco use (# tins/day): No Frequency of alcohol use: None Drug Abuse: None Family History: Reviewed & Not Pertinent, CAD. denies: CVA, Malignancy Patient has suicidal ideation: No Patient has homicidal ideation: No - Past Medical History Cardiac Medical History: Reports: Hx Hypercholesterolemia, Hx Hypertension Denies: Hx Heart Attack Renal/ Medical History: Denies: Hx Peritoneal Dialysis Psychiatric Medical History: Denies: Hx Depression Past Surgical History: Reports: Hx Appendectomy - Immunizations Hx Diphtheria, Pertussis, Tetanus Vaccination: Yes Review of Systems - Review of Systems Notes: REVIEW OF SYSTEMS: CONSTITUTIONAL: -fevers, -chills EENT: -eye pain, -difficulty swallowing, -nasal congestion CARDIOVASCULAR: -chest pain, -syncope. RESPIRATORY: -cough, -SOB GASTROINTESTINAL: +epigastric abdominal pain, -nausea, -vomiting, -diarrhea GENITOURINARY: -dysuria, -hematuria MUSCULOSKELETAL: -back pain, -neck pain SKIN: -rash or skin lesions. HEMATOLOGIC: -easy bruising or bleeding. LYMPHATIC: -swollen, enlarged glands. NEUROLOGICAL: -altered mental status or loss of consciousness, -headache, - neurologic symptoms PSYCHIATRIC: -anxiety, -depression. ALL OTHER SYSTEMS REVIEWED AND NEGATIVE. Physical Exam - Vital signs Vitals: Temp Pulse Resp BP Pulse Ox 98.5 F 71 18 131/73 H 99 01/07/18 17:34 01/07/18 17:34 01/07/18 17:34 01/07/18 17:34 01/07/18 17:34 - Notes Notes: PHYSICAL EXAMINATION: GENERAL: Well-appearing, well-nourished and in no acute distress. HEAD: Atraumatic, normocephalic. EYES: Pupils equal round and reactive to light, extraocular movements intact, sclera anicteric, conjunctiva are normal. ENT: nares patent, oropharynx clear without exudates. Moist mucous membranes. NECK: Normal range of motion, supple without lymphadenopathy LUNGS: Breath sounds clear to auscultation bilaterally and equal. No wheezes rales or rhonchi. HEART: Regular rate and rhythm without murmurs ABDOMEN: Soft, nontender, normoactive bowel sounds. No guarding, no rebound. No masses appreciated. EXTREMITIES: Normal range of motion, no pitting or edema. No cyanosis. NEUROLOGICAL: Cranial nerves grossly intact. Normal speech, normal gait. Normal sensory and motor exams. PSYCH: Normal mood, normal affect. SKIN: Warm, Dry, normal turgor, no rashes or lesions noted. Course - Re-evaluation Re-evalutation: 01/07/18 19:40 Pt with hyperkalemia and peaked T waves in the lateral leads. Will remove patient from RME to Main side and provide hyperkalemic treatment. 01/07/18 19:41 I have greeted and performed a rapid initial assessment of this patient. A comprehensive ED assessment and evaluation of the patient, analysis of test results and completion of the medical decision making process will be conducted by additional ED providers. - Vital Signs Vital signs: Temp Pulse Resp BP Pulse Ox 98.5 F 71 18 131/73 H 99 01/07/18 17:34 01/07/18 17:34 01/07/18 17:34 01/07/18 17:34 01/07/18 17:34 - Laboratory Result Diagrams: 01/07/18 19:02 01/07/18 19:02 Laboratory results interpreted by me: 01/07/18 01/07/18 19:02 19:02 RBC 3.17 L Hgb 8.9 L Hct 26.4 L RDW 18.3 H Lymphocytes % 45.6 H Potassium 6.1 H* BUN 40 H Creatinine 1.93 H Est GFR ( Amer) 44 L Est GFR (Non-Af Amer) 36 L Total Protein 9.2 H Albumin 5.4 H Lipase 344.6 H
[2018-01-07 19:16] LABS: ABSOLUTE BASOPHILS # (AUTO) 0.1 10^3/uL (0.0-0.2); ABSOLUTE EOSINOPHILS # (AUTO) 0.2 10^3/uL (0.0-0.6); ABSOLUTE LYMPHOCYTES (AUTO) 3.6 10^3/uL (0.5-4.7); ABSOLUTE MONOCYTES (AUTO) 0.4 10^3/uL (0.1-1.4); ABSOLUTE NEUT (AUTO) 3.6 10^3/uL (1.7-8.2); EOSINOPHILS % (AUTO) 2.8 % (0-6); HEMATOCRIT 26.4 % (37.9-51.0); HEMOGLOBIN 8.9 g/dL (13.5-17.0); LYMPHOCYTES % (AUTO) 45.6 % (13-45); MEAN CORPUSCULAR HEMOGLOBIN 28.3 pg (27.0-33.4); MEAN CORPUSCULAR HGB CONC 33.9 g/dL (32.0-36.0); MEAN CORPUSCULAR VOLUME 83 fl (80-97); PLATELET COUNT 434 10^3/uL (150-450); RED BLOOD COUNT 3.17 10^6/uL (4.35-5.55); RED CELL DISTRIBUTION WIDTH 18.3 % (11.5-14.0); SEGMENTED NEUTROPHILS % (AUTO) 45.6 % (42-78); TOTAL CELLS COUNTED % (AUTO) 100 %
[2018-01-07 19:27] LABS: ALANINE AMINOTRANSFERASE 22 U/L (21-72); ALBUMIN 5.4 g/dL (3.5-5.0); ALKALINE PHOSPHATASE 75 U/L (38-126); ANION GAP 15 (5-19); ASPARTATE AMINO TRANSFERASE 30 U/L (17-59); BILIRUBIN,DIRECT 0.3 mg/dL (0.0-0.4); BILIRUBIN,TOTAL 0.8 mg/dL (0.2-1.3); BLOOD UREA NITROGEN 40 mg/dL (7-20); CALCIUM 10.1 mg/dL (8.4-10.2); CARBON DIOXIDE 23 mmol/L (22-30); CHLORIDE 103 mmol/L (98-107); GLUCOSE 81 mg/dL (75-110); LIPASE 344.6 U/L (23-300); SODIUM 140.5 mmol/L (137-145); TOTAL PROTEIN 9.2 g/dL (6.3-8.2)
[2018-01-07 19:32] LABS: POTASSIUM 6.1 mmol/L (3.6-5.0)
[2018-01-07] MEDS ORDERED: SODIUM BICARBONATE 8.4% INJ 50 MEQ/50 ML DISP.SYRIN IV ONE (19:42)
[2018-01-07] MEDS ORDERED: CALCIUM GLUCONATE 1000 MG/10 ML INJ IV ONE (19:42)
[2018-01-07] MEDS ORDERED: ALBUTEROL SULFATE 0.083% NEB 2.5 MG/3 ML AMPUL NEB ONE (19:55)
[2018-01-07] MEDS ORDERED: NORMAL SALINE 1000 ML 1,000 ML IV ONE ×2 (19:55→20:34)
[2018-01-07] MEDS ORDERED: LIDOCAINE 1% INJ-PF (10 MG/ML) 30 ML SDV INJ ONE (20:29)
--- NOTE | 2018-01-07 20:35 | ER Document Report ---
ED GI/ - General Mode of Arrival: Ambulatory Information source: Patient TRAVEL OUTSIDE OF THE [place] IN LAST 30 DAYS: No <KETTY METCALF - Last Filed: 01/07/18 21:23> <FELIPE HEARN - Last Filed: 01/08/18 00:28> - General Chief Complaint: Epigastric Pain Stated Complaint: ABDOMINAL PAIN Time Seen by Provider: 01/07/18 18:12 Notes: Patient is a 57 year old male with GERD presents to the emergency department complaining of epigastric abdominal pain onset 4 days ago. Patient describes this pain as burning and constant and states he has taken Rantidine which has not helped. Patient was given a GI cocktail in triage and states he feels a lot better, denies any pain at bedside. Patient was found to be hyperkalmeic in triage without good explanation. Patient reports eating a copious amount of melons the last couple of days. Patient denies taking any anti-acids. (KETTY METCALF) - Related Data Allergies/Adverse Reactions: No Known Allergies Allergy (Verified 01/07/18 17:28) Past Medical History - General Information source: Patient - Social History Smoking Status: Former Smoker Chew tobacco use (# tins/day): No Frequency of alcohol use: None Drug Abuse: None Family History: Reviewed & Not Pertinent, CAD Patient has suicidal ideation: No Patient has homicidal ideation: No - Past Medical History Cardiac Medical History: Reports: Hx Hypercholesterolemia, Hx Hypertension Past Surgical History: Reports: Hx Appendectomy - Immunizations Hx Diphtheria, Pertussis, Tetanus Vaccination: Yes <KETTY METCALF - Last Filed: 01/07/18 21:23> Review of Systems - Review of Systems Constitutional: No symptoms reported EENT: No symptoms reported Cardiovascular: No symptoms reported Respiratory: No symptoms reported Gastrointestinal: See HPI, Abdominal pain Genitourinary: No symptoms reported Male Genitourinary: No symptoms reported Musculoskeletal: No symptoms reported Skin: No symptoms reported Hematologic/Lymphatic: No symptoms reported Neurological/Psychological: No symptoms reported -: Yes All other systems reviewed and negative <KETTY METCALF - Last Filed: 01/07/18 21:23> Physical Exam <KETTY METCALF - Last Filed: 01/07/18 21:23> <FELIPE HEARN - Last Filed: 01/08/18 00:28> - Vital signs Vitals: Temp Pulse Resp BP Pulse Ox 98.5 F 71 18 131/73 H 99 01/07/18 17:34 01/07/18 17:34 01/07/18 17:34 01/07/18 17:34 01/07/18 17:34 - Notes Notes: GENERAL: Alert, interacts well. No acute distress. HEAD: Normocephalic, atraumatic. EYES: Pupils equal, round, and reactive to light. Extraocular movements intact. ENT: Oral mucosa moist, tongue midline. NECK: Full range of motion. Supple. Trachea midline. LUNGS: Clear to auscultation bilaterally, no wheezes, rales, or rhonchi. No respiratory distress. HEART: Regular rate and rhythm. No murmurs, gallops, or rubs. ABDOMEN: Soft, non-tender. Non-distended. Bowel sounds present in all 4 quadrants. EXTREMITIES: Moves all 4 extremities spontaneously. NEUROLOGICAL: Alert and oriented x3. Normal speech. PSYCH: Normal affect, normal mood. SKIN: Warm, dry, normal turgor. Left midline thoracic contains a cystic mass with a white head. Patient states he has had this cyst for years. When applying pressure there was foul smelling purulent discharge. (KETTY METCALF) Course - Laboratory Result Diagrams: 01/07/18 19:02 01/07/18 19:02 <KETTY METCALF - Last Filed: 01/07/18 21:23> - Laboratory Result Diagrams: 01/07/18 19:02 01/07/18 23:05 - EKG Interpretation by [facility] EKG shows normal: Sinus rhythm, [place], Intervals, QRS Complexes. abnormal: ST-T Waves - Patient does have tall T waves consistent with the known hyperkalemia. Rate: Normal - 50 Rhythm: NSR When compared to previous EKG there are: Changes noted <FELIPE HEARN - Last Filed: 01/08/18 00:28> - Re-evaluation Re-evalutation: 01/07/18 21:29 PROCEEDURE: The skin to the left mid thorax was prepped with Shur-Clens. The sebaceous cyst area was anesthetized with 2 mL's of 1% lidocaine local. The skin was incised with a #11 blade. Large amount of thick malodorous sebaceous material was expressed from the cavity. The cyst sac da silva were dissected free. The cavity was packed with quarter inch iodoform gauze. A sterile dressing was applied. 01/08/18 00:23 Repeat potassium is down to 5.3 He is advised to drink plenty of fluids tonight and stop eating melons. (FELIPE HEARN) - Vital Signs Vital signs: Temp Pulse Resp BP Pulse Ox 98.5 F 71 13 147/95 H 100 01/07/18 17:34 01/07/18 17:34 01/07/18 22:00 01/07/18 21:01 01/07/18 22:00 - Laboratory Laboratory results interpreted by pa: 01/07/18 01/07/18 01/07/18 19:02 19:02 19:02 RBC 3.17 L Hgb 8.9 L Hct 26.4 L RDW 18.3 H Lymphocytes % 45.6 H Potassium 6.1 H* Chloride BUN 40 H Creatinine 1.93 H Est GFR ( Amer) 44 L Est GFR (Non-Af Amer) 36 L Creatine Kinase 177 H Total Protein 9.2 H Albumin 5.4 H Lipase 344.6 H 01/07/18 23:05 RBC Hgb Hct RDW Lymphocytes % Potassium 5.3 H Chloride 108 H BUN 37 H Creatinine 1.60 H Est GFR ( Amer) 55 L Est GFR (Non-Af Amer) 45 L Creatine Kinase Total Protein Albumin Lipase Critical Care Note - Critical Care Note Total time excluding time spent on procedures (mins): 40 <FELIPE HEARN - Last Filed: 01/08/18 00:28> Discharge <KETTY METCALF - Last Filed: 01/07/18 21:23> <FELIPE HEARN - Last Filed: 01/08/18 00:28> - Discharge Clinical Impression: Hyperkalemia, Dehydration, Infected sebaceous cyst of skin, Epigastric abdominal pain Condition: Stable Disposition: HOME, SELF-CARE Additional Instructions: Reflux Disease (GERD) Gastro-Esophageal Reflux Disease (GERD) is caused by stomach acid refluxing back up into the esophagus. The valve at the end of the esophagus may be weak. This is common in persons with a hiatal hernia. GERD symptoms can include indigestion, chest pain, heartburn, or food "sticking." Certain foods, alcohol, and aspirin can make GERD worse. Treatment depends on the severity. Usually, antacids or acid-suppressing medicines are used. When the esophagus is acutely inflamed, the physician will often prescribe membrane-protective drugs such as Carafate. Some patients benefit from medication such as Reglan that tightens the valve at the top of the stomach. Avoid those foods that bring on your symptoms. For many people, these foods are coffee, chocolate, onions, garlic, and carbonated drinks. Don't use alcohol, aspirin, caffeine, or tobacco. Don't eat late at night -- within 4 hours of bedtime. Don't over-eat. If necessary, elevate the head of your bed about 4 inches so that stomach acid will not roll up into your esophagus. Call the doctor if you develop severe chest pain, inability to swallow fluids, fever, or worsening symptoms. Abscess: You have an abscess (boil). This a pus-forming infection, usually due to staph. Some boils may be left to drain on their own, but most require lancing. From the time the tender lump first appears, it may be three or four days before the abscess is ready to kianna. Local heat and rest help at this stage of treatment. An antibiotic may prevent spread of the infection. Once the abscess is opened, packing may be placed into it. This is done so pus is not sealed inside by premature closure of the cavity. The packing will be removed at your follow-up visit or you may be advised to remove it yourself at home. Sometimes this packing must be replaced a few times during healing. The wound will heal with surprisingly little scar. Depending on the size and location of an abscess, healing can take one to four weeks. You may shower and wash the area around the incision site two or three times a day. Antibiotics may be prescribed, but are usually not necessary after an abscess has been drained. If you develop fever, chilling, worsening pain, or increasing swelling in the area, call the doctor or return immediately. Your abdominal pain seems to be due to reflux, as the pain went away as soon as you were given a GI cocktail to drink. Your potassium level was quite high causing changes in your EKG. This was most likely due to excessive potassium intake with all the melons that you have been eating. Avoid fruits that have high potassium content for the near future. Drink plenty of fluids tonight. You had a sebaceous cyst on her back that had recently become infected. This infected cyst was removed, and gauze packing was placed in the remaining cavity. Remove the gauze in 2 days, then do saline wet-to-dry dressings on the back until the cavity fills in. Take the antibiotics as prescribed for the next few days. Follow-up with your doctor to discuss better management of your reflux. RETURN TO THE EMERGENCY ROOM IF ANY NEW OR WORSENING SYMPTOMS. Prescriptions: Cephalexin Monohydrate [Keflex 500 mg Capsule] 500 mg PO QID #20 capsule Scribe Attestation: 01/07/18 21:41 I personally performed the services described in the documentation, reviewed and edited the documentation which was dictated to the scribe in my presence, and it accurately records my words and actions. (FELIPE HEARN) Scribe Documentation - Scribe Written by Bolivar:: Bolivar Suggs, 01/07/2018 20:40 acting as scribe for :: Aden <KETTY METCALF - Last Filed: 01/07/18 21:23>
--- NOTE | 2018-01-07 20:44 | EKG REPORT ---
SEVERITY:- BORDERLINE ECG - SINUS RHYTHM TALL T WAVES ? HYPERKALEMIA : Confirmed by: Breonna Ordaz MD 07-Jan-2018 20:42:56
[2018-01-07 20:51] LABS: CREATINE KINASE 177 U/L (55-170)
[2018-01-07] MEDS ORDERED: CEPHALEXIN 500 MG CAPSULE PO ONE (22:27)
[2018-01-07 23:40] LABS: ANION GAP 13 (5-19); BLOOD UREA NITROGEN 37 mg/dL (7-20); CALCIUM 9.5 mg/dL (8.4-10.2); CARBON DIOXIDE 22 mmol/L (22-30); CHLORIDE 108 mmol/L (98-107); GLUCOSE 81 mg/dL (75-110); POTASSIUM 5.3 mmol/L (3.6-5.0); SODIUM 142.8 mmol/L (137-145)
[2018-01-08 00:43] VITALS: BP 133/83
== END 2018-01-08 00:44 | disposition home or self-care (01) ==
LOC: ER 17:27
DX: L72.3 Sebaceous cyst (principal); R10.13 Epigastric pain; E87.5 Hyperkalemia; E86.0 Dehydration; I10 Essential (primary) hypertension; Z87.891 Personal history of nicotine dependence; Z90.49 Acquired absence of other specified parts of digestive tract
CPT/HCPCS: 93005; 94640; 99285; 96375; 96365; 36415; 87070; 82550; 83690; 85025; 87075; 87077; 80048; 80053; 93010; 10060; J0610; J3490 ×3; J7030; 87205

== ENCOUNTER → 2020-05-23 | Outpatient (CLI) | payer BC ==
--- NOTE | 2020-05-23 10:09 | RADIOLOGY REPORT (SQ) ---
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 TECHNIQUE: Under fluoroscopic guidance, patient ingested effervescent granules followed by thick and thin barium. Fluoroscopic spot images and routine radiographic images acquired and stored on PACS. 12 MM BARIUM TABLET GIVEN: Yes. No significant delay in passage. LIMITATIONS: None. FLUOROSCOPY TIME: FLUORO TIME: 2.5 minutes of fluoroscopy was used. 14 images saved to PACS. FINDINGS: NEUROMUSCULAR COORDINATION OF SWALLOW: Normal. No aspiration. ESOPHAGEAL MOTILITY: Esophageal dysmotility with stasis of barium throughout the esophagus. Tertiary contractions distal half esophagus. ESOPHAGEAL MUCOSA: Moderate dilatation of the entire stomach. Mild prominent folds of the distal fiona f esophagus. A metallic clip is seen in the distal 3rd of the esophagus. Maybe surgical clip althou gh implanted monitoring device is suggested, clinical correlation is recommended. GASTRO-ESOPHAGEAL JUNCTION: No hiatal hernia or reflux. Mild narrowing of the distal esophagus at th e GE junction although tablet passed with minimal delay. NON-GI TRACT STRUCTURES: No significant finding. OTHER: No other significant finding. IMPRESSION: 1. ESOPHAGEAL ACHALASIA WITH DISTAL ESOPHAGEAL INTERVENTION PERFORMED 2 YEARS AGO WITHO UT EVIDENCE OF COMPLICATION. 12 MM BARIUM TABLET PASSED THROUGH THE GE JUNCTION WITH ONLY MINIMAL DE LAY. 2. SURGICAL CLIP OR REMOTE MONITORING DEVICE IMPLANTED WITHIN THE DISTAL 3RD OF THE ESOPHAGUS. NO P REVIOUS IMAGING FOR COMPARISON. CLINICAL CORRELATION RECOMMENDED. 3. MILD MUCOSAL FOLD THICKENING IN THE DISTAL ESOPHAGUS. COMMENT: Quality ID [id number]: Final reports for procedures using fluoroscopy that document radiation exp osure indices, or exposure time and number of fluorographic images (if radiation exposure indices are not available) TECHNICAL DOCUMENTATION: JOB ID: [id number] 2010 [employer]- All Rights Reserved Reading location - IP/workstation name: [email or web address]
== END ==
LOC: RAD 07:46
PROVIDERS: ATTEND Surgery
DX: K22.0 Achalasia of cardia (principal)
CPT/HCPCS: 74220